=== PATIENT | male | born 1985 | race Hispanic/Latino ===

== ENCOUNTER 2018-12-02 09:24 | Emergency (ER) | payer SELFPAY ==
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
[2018-12-02 11:18] LABS: Absolute Lymphocytes (CBC) 1.5 K/uL (0.7-4.9); Absolute Neutrophil 17.6 K/uL (1.8-8.0); Basophils % 0.1 % (0-1.3); Eosinophils % 0.1 % (0-4.4); Lymphocytes % 7.3 % (15.3-44.8); MPV 10.9 fL (7.6-11.3); Monocytes % 9.5 % (3.3-12.3); RBC Red Blood Cell Count 5.44 M/uL (4.33-5.43)
[2018-12-02 11:29] LABS: Potassium 3.4 mmol/L (3.5-5.1)
[2018-12-02] MEDS ORDERED: CLINDAMYCIN 900MG/D5W 900 MG/50 ML IVPB IV ONE (11:44)
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
[2018-12-02 12:33] LABS: Blood Morphology Comment NOT SEEN (NOT SEEN); Platelet Estimate ADEQ; Toxic Granulation 1+
[2018-12-02 12:39] VITALS: TEMP 98.6
[2018-12-02 12:41] VITALS: O2SAT 100
[2018-12-02 12:42] VITALS: BP 127/82
== END 2018-12-02 12:32 | disposition home or self-care (01) ==
LOC: ER 09:24
DX: S00.01XA Abrasion of scalp, initial encounter (principal); L03.115 Cellulitis of right lower limb; V47.5XXA Car driver injured in collision with fixed or stationary object in traffic accident, initial encounter; Z91.018 Allergy to other foods
CPT/HCPCS: 36415; 70450; 72125; 80048; 85025; 86850; 86900; 86901; 96365; 99284

== ENCOUNTER 2018-12-25 12:24 | Emergency (ER) | payer SELFPAY ==
--- NOTE | 2018-12-25 13:12 | RAD REPORT ---
EXAM DESCRIPTION: US - Extremity Venous Uni Ltd - 12/25/2018 1:01 pm CLINICAL HISTORY: SWELLING Leg swelling and edema. COMPARISON: EXT VENOUS UNI LTD dated 09/19/2015 FINDINGS: Right lower extremity venous system was interrogated with Doppler technique. Normal flow, compressibility and augmentation was noted. There is no DVT present. IMPRESSION: No evidence of right lower extremity deep venous thrombosis.
--- NOTE | 2018-12-25 13:23 | EDPHYS ---
Physician Documentation [facility] Name: Ej Spaulding Age: 33 yrs Sex: Male : 1985 Arrival Date: 12/25/2018 Time: 12:26 Bed 20 Private MD: None, None ED Physician Nicolas Duenas HPI: 12/25 12:44 This 33 yrs old Male presents to ER via Ambulatory with complaints of Leg jr8 Swelling. 12:44 Patient reports RLE swelling for over 2 weeks; unresolved after treatment for jr8 cellulitis. Onset: The symptoms/episode began/occurred gradually, 2 week(s) ago. Severity of symptoms: Pain is currently a 0 / 10. The patient has not experienced similar symptoms in the past. The patient has been recently seen at the [facility] Emergency Department, a couple of weeks ago, for similar complaints was given a prescription for antibiotics. Patient states he was seen in this ER 2-3 weeks ago and at that time has RLE swelling and redness. He was told he had cellulitis and discharged home with antibiotics. Patient has finished the antibiotic treatment and states that although the redness has resolved he still has significant swelling to his RLE below the knee. Reports the swelling increases throughout the day when he is on his feet for work. Denies fever, SOB, chest pain, calf pain, previous hx of clots, or prolonged travel. Historical: - Allergies: 12:34 Cinnamon; aa5 - Home Meds: 12:34 None [Active]; aa5 - PMHx: 12:34 None; aa5 - PSHx: 12:34 None; aa5 - Immunization history:: Adult Immunizations unknown. - Social history:: Smoking status: Patient/guardian denies using tobacco. - Ebola Screening: : No symptoms or risks identified at this time. ROS: 12:44 Constitutional: Negative for fever, chills, and weight loss, Cardiovascular: Negative jr8 for chest pain, palpitations, and edema, Respiratory: Negative for shortness of breath, cough, wheezing, and pleuritic chest pain, Abdomen/GI: Negative for abdominal pain, nausea, vomiting, diarrhea, and constipation, Skin: Negative for injury, rash, and discoloration, Neuro: Negative for headache, weakness, numbness, tingling, and seizure. 12:44 MS/extremity: Positive for swelling, Negative for injury or acute deformity, erythema, pain, rash, tenderness, tingling, warmth. Exam: 12:47 Constitutional: This is a well developed, well nourished patient who is awake, alert, jr8 and in no acute distress. Cardiovascular: Regular rate and rhythm with a normal S1 and S2. No gallops, murmurs, or rubs. Normal PMI, no JVD. No pulse deficits. Respiratory: Lungs have equal breath sounds bilaterally, clear to auscultation and percussion. No rales, rhonchi or wheezes noted. No increased work of breathing, no retractions or nasal flaring. Abdomen/GI: Soft, non-tender, with normal bowel sounds. No distension or tympany. No guarding or rebound. No evidence of tenderness throughout. Skin: Warm, dry with normal turgor. Normal color with no rashes, no lesions, and no evidence of cellulitis. Neuro: Awake and alert, GCS 15, oriented to person, place, time, and situation. Cranial nerves II-XII grossly intact. Motor strength 5/5 in all extremities. Sensory grossly intact. Cerebellar exam normal. Normal gait. 12:47 Musculoskeletal/extremity: Extremities: grossly normal except: noted in the right mota, anterior aspect of right ankle and dorsum of right foot: swelling, ROM: no acute changes, intact in all extremities, Circulation is intact in all extremities. Pulses: noted to be 2+ in the right posterior tibial artery, right dorsalis pedis artery, left posterior tibial artery and left dorsalis pedis artery, Edema, 1+ to the right midcalf, right ankle, right foot and right toes is noted, Sensation intact. DVT Exam: no pain, no tenderness, negative Homans' sign noted on exam, no appreciated bluish discoloration, no erythema, no increased warmth, swelling, that is moderate, of the right leg, Calves: are non-tender, are not equal in size: right is larger than left. Vital Signs: 12:34 BP 138 / 90; Pulse 70; Resp 18 S; Temp 97.6(TE); Pulse Ox 96% on R/A; Weight 129.27 kg aa5 (R); Height 5 ft. 5 in. (165.10 cm) (R); Pain 0/10; 12:34 Body Mass Index 47.43 (129.27 kg, 165.10 cm) aa5 MDM: 12:32 Patient medically screened. jr8 13:19 Differential Diagnosis Edema. Data reviewed: vital signs, nurses notes, ultrasound. jr8 Counseling: I had a detailed discussion with the patient and/or guardian regarding: the historical points, exam findings, and any diagnostic results supporting the discharge/admit diagnosis, radiology results, the need for outpatient follow up, a family practitioner, to return to the emergency department if symptoms worsen or persist or if there are any questions or concerns that arise at home. ED course: Spoke with patient about ultrasound and assessment findings. Patient is comfortable with no pain, no redness, no warmth, no signs of infection, strong pedal pulses and normal skin temperature. No concern for infectious process or venous/arterial blockage. Explained findings and home care to patient. Patient verbalizes understanding. 12/25 12:42 Order name: Extremity Venous Uni Ltd ; Complete Time: 13:14 jr8 Administered Medications: No medications were administered Disposition: 12/25/18 13:22 Discharged to Home. Impression: Edema, unspecified - right lower extremitity . - Condition is Stable. - Discharge Instructions: Edema, [id number], Peripheral Edema. - Medication Reconciliation Form, Thank You Letter, Antibiotic Education, Prescription Opioid Use form. - Follow up: Private Physician; When: 2 - 3 days; Reason: If symptoms return, Worsening of condition, Recheck today's complaints, Re-evaluation by your physician. - Problem is new. - Symptoms are unchanged. Addendum: 12/28/2018 00:10 Co-signature as Attending Physician, Nicolas Duenas MD. g s Signatures: Dispatcher [employer] EDMS Estefani Sun RN RN aa5 Narinder Escamilla PA PA jr8 Gerson Weathers RN RN jl7 Nicolas Duenas MD MD Corrections: (The following items were deleted from the chart) 12/25 13:27 13:22 12/25/2018 13:22 Discharged to Home. Impression: Edema, unspecified - right lower jl7 extremitity . Condition is Stable. Forms are Medication Reconciliation Form, Thank You Letter, Antibiotic Education, Prescription Opioid Use. Follow up: Private Physician; When: 2 - 3 days; Reason: If symptoms return, Worsening of condition, Recheck today's complaints, Re-evaluation by your physician. Problem is new. Symptoms are unchanged. jr8
--- NOTE | 2018-12-25 13:23 | ER ---
Nurse's Notes [facility] Name: Ej Spaulding Age: 33 yrs Sex: Male : 1985 Arrival Date: 12/25/2018 Time: 12:26 Bed 20 Private MD: None, None Diagnosis: Edema, unspecified-right lower extremitity Presentation: 12/25 12:33 Presenting complaint: Patient states: "I had cellulitis about 2 week ago and I finished aa5 my antibiotics, the redness went away but my leg is still swollen". Pt c/o right leg swelling, denies pain. Transition of care: patient was not received from another setting of care. Onset of symptoms was December 2018. Risk Assessment: Do you want to hurt yourself or someone else? Patient reports no desire to harm self or others. Initial Sepsis Screen: Does the patient meet any 2 criteria? No. Patient's initial sepsis screen is negative. Does the patient have a suspected source of infection? No. Patient's initial sepsis screen is negative. Care prior to arrival: None. 12:33 Method Of Arrival: Ambulatory aa5 12:33 Acuity: MIKE 4 aa5 Historical: - Allergies: 12:34 Cinnamon; aa5 - Home Meds: 12:34 None [Active]; aa5 - PMHx: 12:34 None; aa5 - PSHx: 12:34 None; aa5 - Immunization history:: Adult Immunizations unknown. - Social history:: Smoking status: Patient/guardian denies using tobacco. - Ebola Screening: : No symptoms or risks identified at this time. Screenin:50 Abuse screen: Denies threats or abuse. Denies injuries from another. Nutritional jl7 screening: No deficits noted. Tuberculosis screening: No symptoms or risk factors identified. Fall Risk None identified. Assessment: 12:50 General: Appears in no apparent distress. uncomfortable, Behavior is calm, cooperative, jl7 appropriate for age. Pain: Denies pain. Neuro: Level of Consciousness is awake, alert, obeys commands, Oriented to person, place, time, situation. Cardiovascular: Patient's skin is warm and dry. Respiratory: Airway is patent Respiratory effort is even, unlabored, Respiratory pattern is regular, symmetrical. Derm: Skin is pink, warm \\T\\ dry. Vital Signs: 12:34 BP 138 / 90; Pulse 70; Resp 18 S; Temp 97.6(TE); Pulse Ox 96% on R/A; Weight 129.27 kg aa5 (R); Height 5 ft. 5 in. (165.10 cm) (R); Pain 0/10; 12:34 Body Mass Index 47.43 (129.27 kg, 165.10 cm) aa5 ED Course: 12:26 Patient arrived in ED. mr 12:27 None, None is Private Physician. mr 12:31 Anil Murray NP is PHCP. pm1 12:31 Nicolas Duenas MD is Attending Physician. pm1 12:31 Narinder Escamilla PA is PHCP. jr8 12:31 Arm band placed on Patient placed in an exam room, on a stretcher. aa5 12:34 Triage completed. aa5 12:50 Patient has correct armband on for positive identification. Bed in low position. Call jl7 light in reach. Side rails up X 1. 13:02 Extremity Venous Uni Ltd US In Process Unspecified. EDMS 13:21 Gerson Weathers, RN is Primary Nurse. jl7 13:26 No provider procedures requiring assistance completed. Patient did not have IV access jl7 during this emergency room visit. Administered Medications: No medications were administered Outcome: 13:22 Discharge ordered by . jr8 13:26 Discharged to home ambulatory. jl7 13:26 Condition: stable 13:26 Discharge instructions given to patient, Instructed on discharge instructions, follow up and referral plans. Demonstrated understanding of instructions, follow-up care. 13:27 Patient left the ED. jl7 Signatures: Dispatcher [employer] MARIEAR Joann Noonan DinoEstefani, RN RN aa5 Narinder Escamilla PA PA jr8 Anil Murray NP [employer] OPERATOR pm1 Gerson Weathers RN RN jl7
[2018-12-25 13:32] VITALS: BP 138/90; TEMP 97.6; O2SAT 96
== END 2018-12-25 13:27 | disposition home or self-care (01) ==
LOC: ER 12:24
DX: R60.0 Localized edema (principal); Z91.018 Allergy to other foods
CPT/HCPCS: 93971; 99283

== ENCOUNTER 2019-01-08 10:37 | Emergency (ER) | payer SELFPAY ==
[2019-01-08] MEDS ORDERED: IBUPROFEN 400 MG TAB ONE (11:33)
[2019-01-08] MEDS ORDERED: IBUPROFEN 200 MG TAB PO ONE ×2 (11:34→11:39)
--- NOTE | 2019-01-08 11:55 | RAD REPORT ---
EXAM DESCRIPTION: US - Extremity Venous Uni Ltd - 01/08/2019 11:44 am CLINICAL HISTORY: Pain;Swelling Leg swelling and edema. COMPARISON: Extremity Venous Uni Ltd dated 12/25/2018 FINDINGS: Right lower extremity venous system was interrogated with Doppler technique. Normal flow, compressibility and augmentation was noted. There is no DVT present. IMPRESSION: No evidence of right lower extremity deep venous thrombosis.
--- NOTE | 2019-01-08 12:30 | EDPHYS ---
Physician Documentation [facility] Name: Ej Spaulding Age: 33 yrs Sex: Male : 1985 Arrival Date: 01/08/2019 Time: 10:37 Bed 27 Private MD: ED Physician Hung Eldridge HPI: 01/08 11:20 This 33 yrs old Male presents to ER via Ambulatory with complaints of Feet cp Swelling. 11:20 The patient presents with pain, that is acute, swelling, tenderness. The complaints cp affect the right foot. Onset: The symptoms/episode began/occurred yesterday. Associated signs and symptoms: Pertinent positives: warmth, Pertinent negatives fever, injury. Treatment prior to arrival includes: no previous treatment. The patient has experienced a previous episode, last month, but today's symptoms are not as bad as this previous episode, diagnosed with cellulitis in right lower extremity. 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 Historical: - Allergies: 11:09 Cinnamon; iw - Home Meds: 11:09 None [Active]; iw - PMHx: 11:09 None; iw - PSHx: 11:09 None; iw - Immunization history:: Adult Immunizations up to date. - Social history:: Smoking status: Patient uses tobacco products. - Ebola Screening: : Patient negative for fever greater than or equal to 101.5 degrees Fahrenheit, and additional compatible Ebola Virus Disease symptoms Patient denies exposure to infectious person Patient denies travel to an Ebola-affected area in the 21 days before illness onset No symptoms or risks identified at this time. ROS: 11:20 Constitutional: Negative for body aches, chills, fever, poor PO intake. cp 11:20 Eyes: Negative for injury, pain, redness, and discharge. cp 11:20 ENT: Negative for drainage from ear(s), ear pain, sore throat, difficulty swallowing, difficulty handling secretions. 11:20 Cardiovascular: Negative for chest pain, palpitations. 11:20 Respiratory: Negative for cough, shortness of breath, wheezing. 11:20 Abdomen/GI: Negative for abdominal pain, nausea, vomiting, and diarrhea. 11:20 Back: Negative for pain at rest, pain with movement. 11:20 MS/extremity: Positive for erythema, pain, swelling, tenderness, warmth, of the right foot, Negative for injury or acute deformity, paresthesias. 11:20 All other systems are negative. Exam: 11:27 Constitutional: The patient appears in no acute distress, alert, awake, cp non-diaphoretic, non-toxic, well developed, well nourished, obese. 11:27 Head/Face: Normocephalic, atraumatic. cp 11:27 Eyes: Periorbital structures: appear normal, Conjunctiva: normal, no exudate, no injection, Sclera: no appreciated abnormality, Lids and lashes: appear normal, bilaterally. 11:27 ENT: External ear(s): are unremarkable, Nose: is normal, Mouth: Lips: moist, Oral mucosa: pink and intact, moist, Posterior pharynx: is normal, airway is patent, no erythema, no exudate. 11:27 Chest/axilla: Inspection: normal. 11:27 Cardiovascular: Rate: normal, Rhythm: regular, Heart sounds: murmur, not appreciated, JVD: is not appreciated. 11:27 Respiratory: the patient does not display signs of respiratory distress, Respirations: normal, no use of accessory muscles, no retractions, no splinting, no tachypnea, labored breathing, is not present, Breath sounds: are clear throughout, no decreased breath sounds, no stridor, no wheezing. 11:27 Musculoskeletal/extremity: Extremities: grossly normal except: noted in the right foot: swelling, tenderness, erythema noted to dorsum of right foot, Perfusion: the extremity is normally perfused throughout, Sensation intact. 11:27 Skin: intact of right lower extremity. Vital Signs: 11:10 BP 132 / 93; Pulse 82; Resp 16; Temp 98.3(O); Pulse Ox 98% on R/A; Weight 127.01 kg; iw Height 5 ft. 5 in. (165.10 cm); Pain 8/10; 12:17 BP 141 / 90; Pulse 80; Resp 16; Pulse Ox 97% on R/A; ao 11:10 Body Mass Index 46.59 (127.01 kg, 165.10 cm) iw MDM: 11:05 Patient medically screened. cp 11:25 Differential diagnosis: DVT, cellulitis, abscess, diabetes. cp 12:30 Data reviewed: vital signs, nurses notes, radiologic studies, ultrasound. 12:30 Counseling: I had a detailed discussion with the patient and/or guardian regarding: the cp historical points, exam findings, and any diagnostic results supporting the discharge/admit diagnosis, radiology results, the need for outpatient follow up, a family practitioner, to return to the emergency department if symptoms worsen or persist or if there are any questions or concerns that arise at home. Response to treatment: the patient's symptoms have mildly improved after treatment, VSS. US negative for DVT. Will treat patient for cellulitis of right lower extremity and discharge to home for continued monitoring. 01/08 12:28 Order name: Glucose, Ancillary Testing [facility] 01/08 11:16 Order name: US Extremity Venous Unilateral Ltd; Complete Time: 12:02 01/08 12:02 Interpretation: Report reviewed. 01/08 11:16 Order name: Accucheck Blood Glucose; Complete Time: 11:24 01/08 11:16 Order name: Misc. Order: outline area of erythema; Complete Time: 12:16 Administered Medications: 11:27 Drug: Ibuprofen 800 mg Route: PO; 11:57 Follow up: Response: Pain is decreased Disposition: 01/09 07:33 Co-signature as Attending Physician, Hung Eldridge MD. rn Disposition: 01/08/19 12:30 Discharged to Home. Impression: Cellulitis of right lower limb - foot. - Condition is Stable. - Discharge Instructions: Cellulitis, Adult. - Prescriptions for Ibuprofen 800 mg Oral Tablet - take 1 tablet by ORAL route every 8 hours As needed take with food; 30 tablet. Doxycycline Monohydrate 100 mg Oral Tablet - take 1 tablet by ORAL route every 12 hours for 10 days; 20 tablet. - Medication Reconciliation Form, Thank You Letter, Antibiotic Education, Prescription Opioid Use, Work release form form. - Follow up: Private Physician; When: 48 Hours; Reason: Worsening of condition. - Problem is new. - Symptoms have improved. Signatures: Dispatcher [employer] [facility] Sofia Mills RN RN aj Williams, Irene, RN RN iw Nieto, Roman, MD MD rn Page, Corey, PA PA Otf Persaud RN RN ao Corrections: (The following items were deleted from the chart) 01/08 12:39 12:30 01/08/2019 12:30 Discharged to Home. Impression: Cellulitis of right lower limb - ao foot. Condition is Stable. Forms are Medication Reconciliation Form, Thank You Letter, Antibiotic Education, Prescription Opioid Use. Follow up: Private Physician; When: 48 Hours; Reason: Worsening of condition. Problem is new. Symptoms have improved. cp
--- NOTE | 2019-01-08 12:30 | ER ---
Nurse's Notes [facility] Name: Ej Spaulding Age: 33 yrs Sex: Male : 1985 Arrival Date: 01/08/2019 Time: 10:37 Bed 27 Private MD: Diagnosis: Cellulitis of right lower limb-foot Presentation: 01/08 11:08 Presenting complaint: Patient states: pain, swelling, redness to top of right iw foot/ankle X 2 days. Transition of care: patient was not received from another setting of care. Onset of symptoms was January 06, 2019. Risk Assessment: Do you want to hurt yourself or someone else? Patient reports no desire to harm self or others. Initial Sepsis Screen: Does the patient meet any 2 criteria? No. Patient's initial sepsis screen is negative. Does the patient have a suspected source of infection? No. Patient's initial sepsis screen is negative. Care prior to arrival: None. 11:08 Method Of Arrival: Ambulatory iw 11:08 Acuity: MIKE 3 iw Historical: - Allergies: 11:09 Cinnamon; iw - Home Meds: 11:09 None [Active]; iw - PMHx: 11:09 None; iw - PSHx: 11:09 None; iw - Immunization history:: Adult Immunizations up to date. - Social history:: Smoking status: Patient uses tobacco products. - Ebola Screening: : Patient negative for fever greater than or equal to 101.5 degrees Fahrenheit, and additional compatible Ebola Virus Disease symptoms Patient denies exposure to infectious person Patient denies travel to an Ebola-affected area in the 21 days before illness onset No symptoms or risks identified at this time. Screenin:10 Abuse screen: Denies threats or abuse. Denies injuries from another. Nutritional ao screening: No deficits noted. Tuberculosis screening: No symptoms or risk factors identified. Fall Risk None identified. Assessment: 12:09 General: Appears in no apparent distress. comfortable, Behavior is calm, cooperative, ao appropriate for age. Pain: Denies pain. Neuro: Level of Consciousness is awake, alert, obeys commands, Oriented to person, place, time, situation, Appropriate for age Moves all extremities. Full function Speech is normal, Facial symmetry appears normal, Pupils are PERRLA. Cardiovascular: Capillary refill < 3 seconds Patient's skin is warm and dry. Respiratory: Airway is patent Respiratory effort is even, unlabored, Respiratory pattern is regular, symmetrical. GI: No signs and/or symptoms were reported involving the gastrointestinal system. : No signs and/or symptoms were reported regarding the genitourinary system. EENT: No signs and/or symptoms were reported regarding the EENT system. Derm: Skin temperature is warm. Musculoskeletal: Swelling present in right leg. 12:38 Reassessment: Dc instructions given to patient. Patient agree with the POC and to ao follow up with PCP. Vital Signs: 11:10 BP 132 / 93; Pulse 82; Resp 16; Temp 98.3(O); Pulse Ox 98% on R/A; Weight 127.01 kg; iw Height 5 ft. 5 in. (165.10 cm); Pain 8/10; 12:17 BP 141 / 90; Pulse 80; Resp 16; Pulse Ox 97% on R/A; ao 11:10 Body Mass Index 46.59 (127.01 kg, 165.10 cm) iw ED Course: 10:37 Patient arrived in ED. as 11:02 Sofia Mills, RN is Primary Nurse. aj 11:05 Jesús Bach PA is PHCP. cp 11:05 Hung Eldridge MD is Attending Physician. cp 11:09 Triage completed. iw 11:10 Arm band placed on. iw 11:38 US Extremity Venous Unilateral Ltd In Process Unspecified. EDMS 12:10 Patient has correct armband on for positive identification. Pulse ox on. ao 12:38 No provider procedures requiring assistance completed. Patient did not have IV access ao during this emergency room visit. Administered Medications: 11:27 Drug: Ibuprofen 800 mg Route: PO; aj 11:57 Follow up: Response: Pain is decreased aj Outcome: 12:30 Discharge ordered by . cp 12:38 Discharged to home ambulatory. ao 12:38 Condition: stable 12:38 Discharge instructions given to patient, Instructed on discharge instructions, follow up and referral plans. Demonstrated understanding of instructions, follow-up care, medications, Prescriptions given X 2. 12:39 Patient left the ED. ao Signatures: Dispatcher [employer] [facility] Sofia Mills RN RN aj Martinez, Amelia as Williams, Irene, RN RN iw Jesús Bach PA PA Otf Miranda RN RN ao
[2019-01-08 13:13] VITALS: TEMP 98.3
[2019-01-08 13:14] VITALS: BP 141/90; O2SAT 97
== END 2019-01-08 12:39 | disposition home or self-care (01) ==
LOC: ER 10:37
DX: L03.115 Cellulitis of right lower limb (principal); Z72.0 Tobacco use
CPT/HCPCS: 82962; 93971; 99284

== ENCOUNTER 2019-12-29 15:09 | Emergency (ER) | payer SELFPAY ==
[2019-12-29] MEDS ORDERED: ONDANSETRON 4 MG/2 ML VIAL ONE (15:37)
[2019-12-29] MEDS ORDERED: NA CHLORIDE 0.9% 1,000 ML ONE (15:37)
[2019-12-29 15:53] LABS: Absolute Lymphocytes (CBC) 2.8 K/uL (0.7-4.9); Basophils % 0.7 % (0-1.3); Hematocrit 48.6 % (39.6-49.0); Lymphocytes % 26.8 % (15.3-44.8); MPV 10.3 fL (7.6-11.3); RBC Red Blood Cell Count 5.54 M/uL (4.33-5.43)
[2019-12-29 16:12] LABS: ALT/SGPT 81 U/L (12-78); AST/SGOT 54 U/L (15-37); Albumin 3.7 g/dL (3.4-5.0); Alkaline Phosphatase 52 U/L (45-117); BUN Blood Urea Nitrogen 11 mg/dL (7-18); Bicarbonate 27 mmol/L (21-32); Bilirubin Direct 0.1 mg/dL (0-0.2); Glucose Level 91 mg/dL (74-106); Lipase 148 U/L (73-393); Protein, Total 7.7 g/dL (6.4-8.2); Sodium Level 141 mmol/L (136-145)
[2019-12-29 16:19] LABS: Bilirubin Total 0.5 mg/dL (0.2-1.0)
--- NOTE | 2019-12-29 16:31 | EDPHYS ---
Physician Documentation [facility] Name: Ej Spaulding Age: 34 yrs Sex: Male : 1985 Arrival Date: 12/29/2019 Time: 15:10 Bed 24 Private MD: ED Physician Gui Saldana HPI: 12/28 16:17 This 34 yrs old Male presents to ER via Ambulatory with complaints of kb Vomiting/Diarrhea. 16:17 The patient presents to the emergency department with nausea, vomiting, diarrhea, kb abdominal pain. Onset: The symptoms/episode began/occurred yesterday. Possible causes: bad food exposure. The symptoms are aggravated by nothing. The symptoms are alleviated by nothing. Associated signs and symptoms: Pertinent positives: diarrhea, nausea, vomiting, Pertinent negatives: abdominal pain, anorexia, belching, constipation, dysuria, fever, flatulence, GI bleeding, hematuria. Severity of symptoms: At their worst the symptoms were moderate in the emergency department the symptoms are unchanged. The patient has not experienced similar symptoms in the past. The patient has not recently seen a physician. Pt reports he ate a burrito on the way to work yesterday morning, then started vomiting about an hour later. Reports he now had diarrhea as well. No sick contacts.. Historical: - Allergies: 15:25 Cinnamon; ll1 - PMHx: 15:25 None; ll1 - PSHx: 15:25 None; ll1 - Immunization history:: Flu vaccine is not up to date. - Social history:: Smoking status: Patient reports the use of cigarette tobacco products, denies chronic smoking, but will smoke occasionally, Patient uses alcohol, only on a social basis. Patient/guardian denies using street drugs. ROS: 16:16 Constitutional: Negative for fever, chills, and weight loss, ENT: Negative for injury, kb pain, and discharge, Neck: Negative for injury, pain, and swelling, Cardiovascular: Negative for chest pain, palpitations, and edema, Respiratory: Negative for shortness of breath, cough, wheezing, and pleuritic chest pain, Back: Negative for injury and pain, MS/Extremity: Negative for injury and deformity, Skin: Negative for injury, rash, and discoloration, Neuro: Negative for headache, weakness, numbness, tingling, and seizure. 16:16 Abdomen/GI: Positive for nausea, vomiting, and diarrhea, abdominal cramps, Negative for constipation. Exam: 16:16 Constitutional: This is a well developed, well nourished patient who is awake, alert, kb and in no acute distress. Head/Face: Normocephalic, atraumatic. Neck: Trachea midline, no thyromegaly or masses palpated, and no cervical lymphadenopathy. Supple, full range of motion without nuchal rigidity, or vertebral point tenderness. No Meningismus. Chest/axilla: Normal chest wall appearance and motion. Nontender with no deformity. No lesions are appreciated. Cardiovascular: Regular rate and rhythm with a normal S1 and S2. No gallops, murmurs, or rubs. Normal PMI, no JVD. No pulse deficits. Respiratory: Lungs have equal breath sounds bilaterally, clear to auscultation and percussion. No rales, rhonchi or wheezes noted. No increased work of breathing, no retractions or nasal flaring. Abdomen/GI: Soft, non-tender, with normal bowel sounds. No distension or tympany. No guarding or rebound. No evidence of tenderness throughout. Back: No spinal tenderness. No costovertebral tenderness. Full range of motion. Skin: Warm, dry with normal turgor. Normal color with no rashes, no lesions, and no evidence of cellulitis. MS/ Extremity: Pulses equal, no cyanosis. Neurovascular intact. Full, normal range of motion. Neuro: Awake and alert, GCS 15, oriented to person, place, time, and situation. Cranial nerves II-XII grossly intact. Motor strength 5/5 in all extremities. Sensory grossly intact. Cerebellar exam normal. Normal gait. Vital Signs: 15:23 BP 144 / 98; Pulse 74; Resp 18; Temp 98.9; Pulse Ox 97% ; Weight 131.54 kg; Height 5 ll1 ft. 5 in. (165.10 cm); Pain 3/10; 15:23 Body Mass Index 48.26 (131.54 kg, 165.10 cm) ll1 MDM: 15:26 Patient medically screened. kb 16:17 Data reviewed: vital signs, nurses notes. Data interpreted: Pulse oximetry: on room air kb is 97 %. Interpretation: normal. Counseling: I had a detailed discussion with the patient and/or guardian regarding: the historical points, exam findings, and any diagnostic results supporting the discharge/admit diagnosis, lab results, the need for outpatient follow up, a family practitioner, to return to the emergency department if symptoms worsen or persist or if there are any questions or concerns that arise at home. 12/28 15:26 Order name: Basic Metabolic Panel; Complete Time: 16:20 kb 12/28 15:26 Order name: CBC with Diff; Complete Time: 16:05 kb 12/28 15:26 Order name: Hepatic Function; Complete Time: 16:20 kb 12/28 15:26 Order name: Lipase; Complete Time: 16:20 kb 12/28 15:26 Order name: IV Saline Lock; Complete Time: 15:43 kb 12/28 15:26 Order name: Labs collected and sent; Complete Time: 15:43 kb Administered Medications: 15:42 Drug: Zofran (Ondansetron) 4 mg Route: IVP; Site: right antecubital; hb 16:15 Follow up: Response: No adverse reaction hb 15:43 Drug: NS 0.9% 1000 ml Route: IV; Rate: 1000 ml; Site: right antecubital; hb 16:45 Follow up: Response: No adverse reaction; IV Status: Completed infusion; IV Intake: hb 1000ml Disposition: 12/29 08:49 Co-signature as Attending Physician, Gui Saldana MD I agree with the assessment and kdr plan of care. Disposition: 12/29/19 16:21 Discharged to Home. Impression: Vomiting, Diarrhea, unspecified. - Condition is Stable. - Discharge Instructions: Food Choices to Help Relieve Diarrhea, Adult, Food Poisoning, [id number]. - Prescriptions for Bentyl 20 mg Oral Tablet - take 1 tablet by ORAL route every 6 hours As needed; 20 tablet. Zofran 4 mg Oral Tablet - take 1 tablet by ORAL route every 6 hours As needed; 20 tablet. - Medication Reconciliation Form, Thank You Letter, Antibiotic Education, Prescription Opioid Use, Work release form form. - Follow up: Emergency Department; When: As needed; Reason: Worsening of condition. Follow up: Private Physician; When: 2 - 3 days; Reason: Recheck today's complaints, Continuance of care, Re-evaluation by your physician. Signatures: Dispatcher [employer] Ro Luther, Fortunato Lynnin, MD MD [facility] Fior Talavera, RN RN Morenita Amador RN RN ll1 Corrections: (The following items were deleted from the chart) 12/28 16:54 16:21 12/29/2019 16:21 Discharged to Home. Impression: Vomiting; Diarrhea, unspecified. hb Condition is Stable. Forms are Medication Reconciliation Form, Thank You Letter, Antibiotic Education, Prescription Opioid Use. Follow up: Emergency Department; When: As needed; Reason: Worsening of condition. Follow up: Private Physician; When: 2 - 3 days; Reason: Recheck today's complaints, Continuance of care, Re-evaluation by your physician. kb
--- NOTE | 2019-12-29 16:31 | ER ---
Nurse's Notes [facility] Name: Ej Spaulding Age: 34 yrs Sex: Male : 1985 Arrival Date: 12/29/2019 Time: 15:10 Bed 24 Private MD: Diagnosis: Vomiting;Diarrhea, unspecified Presentation: 12/28 15:23 Chief complaint: Patient states: N/V/D for 2 days. Thinks he ate bad food. Coronavirus ll1 screen: Proceed with normal triage. Patient denies a cough. Patient denies shortness of breath or difficulty breathing. Patient denies measured and/or subjective temperature greater than 100.4F prior to today's visit. Patient denies travel on a cruise ship or to a country the [facility] currently lists as an affected area. Patient denies contact with known and/or suspected case of COVID-19. Ebola Screen: Patient denies travel to an Ebola-affected area in the 21 days before illness onset. Initial Sepsis Screen: Does the patient meet any 2 criteria? No. Patient's initial sepsis screen is negative. Does the patient have a suspected source of infection? No. Patient's initial sepsis screen is negative. Risk Assessment: Do you want to hurt yourself or someone else? Patient reports no desire to harm self or others. Onset of symptoms was December 28, 2019. 15:23 Method Of Arrival: Ambulatory 1 15:23 Acuity: MIKE 3 ll1 Historical: - Allergies: 15:25 Cinnamon; ll1 - PMHx: 15:25 None; ll1 - PSHx: 15:25 None; ll1 - Immunization history:: Flu vaccine is not up to date. - Social history:: Smoking status: Patient reports the use of cigarette tobacco products, denies chronic smoking, but will smoke occasionally, Patient uses alcohol, only on a social basis. Patient/guardian denies using street drugs. Vital Signs: 15:23 BP 144 / 98; Pulse 74; Resp 18; Temp 98.9; Pulse Ox 97% ; Weight 131.54 kg; Height 5 ll1 ft. 5 in. (165.10 cm); Pain 3/10; 15:23 Body Mass Index 48.26 (131.54 kg, 165.10 cm) ll1 ED Course: 15:10 Patient arrived in ED. ag5 15:12 Ro Cole FNP-C is [facility]. kb 15:12 Gui Saldana MD is Attending Physician. kb 15:24 Triage completed. ll1 15:25 Arm band placed on Patient placed in an exam room, on a stretcher. ll1 15:29 Fior Talavera, RN is Primary Nurse. hb 15:40 Inserted saline lock: 20 gauge in right antecubital area, using aseptic technique. hb Blood collected. Administered Medications: 15:42 Drug: Zofran (Ondansetron) 4 mg Route: IVP; Site: right antecubital; hb 16:15 Follow up: Response: No adverse reaction hb 15:43 Drug: NS 0.9% 1000 ml Route: IV; Rate: 1000 ml; Site: right antecubital; hb 16:45 Follow up: Response: No adverse reaction; IV Status: Completed infusion; IV Intake: hb 1000ml Intake: 16:45 IV: 1000ml; Total: 1000ml. hb Outcome: 16:21 Discharge ordered by . kb 16:54 Patient left the ED. hb Signatures: Ro Cole FNP-C [employer] Fior Talavera, RN RN Lance Michele ag5 Morenita Amador RN RN ll1
[2019-12-29 17:11] VITALS: BP 144/98; TEMP 98.9; O2SAT 97
== END 2019-12-29 16:54 | disposition home or self-care (01) ==
LOC: ER 15:09
DX: R19.7 Diarrhea, unspecified (principal); F17.210 Nicotine dependence, cigarettes, uncomplicated; Z91.018 Allergy to other foods
CPT/HCPCS: 36415; 80048; 80076; 83690; 85025; J2405; J7030

== ENCOUNTER 2020-02-19 11:39 | Emergency (ER) | payer SELFPAY ==
--- NOTE | 2020-02-19 12:36 | RAD REPORT ---
EXAM DESCRIPTION: USExtremity Venous Uni Ltd02/19/2020 12:12 pm CLINICAL HISTORY: Right leg pain COMPARISON: 2019 FINDINGS: Right common femoral, superficial femoral, popliteal and right posterior tibial veins are compressible and demonstrate augmentation. Doppler demonstrates good flow. IMPRESSION: No evidence of deep venous thrombosis involving the right lower extremity.
--- NOTE | 2020-02-19 12:37 | ER ---
Nurse's Notes [facility] Name: Ej Spaulding Age: 34 yrs Sex: Male : 1985 Arrival Date: 02/19/2020 Time: 11:41 Bed 24 Private MD: Diagnosis: Edema, unspecified-right lower extremity Presentation: 02/18 11:54 Chief complaint: Patient states: R leg and R foot swelling since yesterday. Denies ca1 injury to the area. Reports pain at the top foot and R calf when stretching foot. Coronavirus screen: Proceed with normal triage. Patient denies a cough. Patient denies shortness of breath or difficulty breathing. Patient denies measured and/or subjective temperature greater than 100.4F prior to today's visit. Patient denies travel on a cruise ship or to a country the [facility] currently lists as an affected area. Patient denies contact with known and/or suspected case of COVID-19. Ebola Screen: Patient negative for fever greater than or equal to 101.5 degrees Fahrenheit, and additional compatible Ebola Virus Disease symptoms Patient denies exposure to infectious person. Patient denies travel to an Ebola-affected area in the 21 days before illness onset. No symptoms or risks identified at this time. Initial Sepsis Screen: Does the patient meet any 2 criteria? No. Patient's initial sepsis screen is negative. Does the patient have a suspected source of infection? No. Patient's initial sepsis screen is negative. Risk Assessment: Do you want to hurt yourself or someone else? Patient reports no desire to harm self or others. Onset of symptoms was February 19, 2020. 11:54 Method Of Arrival: Ambulatory ca1 11:54 Acuity: MIKE 3 ca1 Triage Assessment: 12:00 General: Appears in no apparent distress. Behavior is calm, cooperative. iw Historical: - Allergies: 11:59 Cinnamon; ca1 - Home Meds: 11:59 None [Active]; ca1 - PMHx: 11:59 None; ca1 - PSHx: 11:59 None; ca1 - Immunization history:: Adult Immunizations up to date. - Social history:: Smoking status: Patient reports the use of cigarette tobacco products, denies chronic smoking, but will smoke occasionally. Screenin:55 Abuse screen: Denies threats or abuse. Denies injuries from another. Nutritional iw screening: No deficits noted. Tuberculosis screening: No symptoms or risk factors identified. Fall Risk None identified. Assessment: 12:00 General: Appears in no apparent distress. comfortable, Behavior is calm, cooperative. iw Pain: Complains of pain in right leg. Neuro: Level of Consciousness is awake, alert, obeys commands, Oriented to person, place, time, situation, Moves all extremities. Full function. Cardiovascular: Patient's skin is warm and dry. Respiratory: Respiratory effort is even, unlabored, Respiratory pattern is regular, symmetrical. GI: No signs and/or symptoms were reported involving the gastrointestinal system. Derm: Skin is intact, is healthy with good turgor. Musculoskeletal: Swelling present in right leg. Vital Signs: 11:54 BP 134 / 108; Pulse 80; Resp 16 S; Temp 98.5(TE); Pulse Ox 96% on R/A; Weight 133.36 kg ca1 (R); Height 5 ft. 5 in. (165.10 cm) (R); Pain 1/10; 11:54 Body Mass Index 48.93 (133.36 kg, 165.10 cm) ca1 ED Course: 11:41 Patient arrived in ED. ag5 11:54 Ro Cole FNP-C [facility]. kb 11:54 Allan Conley MD is Attending Physician. kb 11:58 Triage completed. ca1 11:59 Arm band placed on right wrist. ca1 12:00 Patient has correct armband on for positive identification. iw 12:13 US Extremity Venous Unilateral Ltd In Process Unspecified. EDMS 12:49 Chani Guallpa RN is Primary Nurse. iw 12:55 No provider procedures requiring assistance completed. Patient admitted, IV remains in iw place. Administered Medications: No medications were administered Outcome: 12:37 Discharge ordered by . kb 12:55 Discharged to home ambulatory. iw 12:55 Condition: good 12:55 Discharge instructions given to patient, Instructed on discharge instructions, follow up and referral plans. Demonstrated understanding of instructions, follow-up care. 12:56 Patient left the ED. iw Signatures: Dispatcher [employer] EDMS Ro Cole FNP-C FNP-Ckb Williams, Irene, RN RN iw Ella Negro RN RN ca1 Lance Wagner ag5 Corrections: (The following items were deleted from the chart) 11:59 11:54 Acuity: MIKE 4 ca1 ca1 11:59 11:54 Pulse 80bpm; Resp 16bpm; Spontaneous; Pulse Ox 96% RA; Temp 98.5F Temporal; ca1 133.36 kg Reported; Height 5 ft. 5 in. Reported; BMI: 48.9; Pain 1/10; ca1
--- NOTE | 2020-02-19 12:37 | EDPHYS ---
Physician Documentation [facility] Name: Ej Spaulding Age: 34 yrs Sex: Male : 1985 Arrival Date: 02/19/2020 Time: 11:41 Bed 24 Private MD: ED Physician Allan Conley HPI: 02/18 12:39 This 34 yrs old Male presents to ER via Ambulatory with complaints of Leg kb Swelling. 12:39 The patient presents with swelling. The complaints affect the right leg. Context: The kb problem was sustained at home, resulted from an unknown cause, the patient can fully bear weight, the patient is able to ambulate. Onset: The symptoms/episode began/occurred 3 day(s) ago. Modifying factors: The symptoms are alleviated by elevating leg, the symptoms are aggravated by nothing. Associated signs and symptoms: Pertinent positives: swelling, Pertinent negatives calf tenderness, fever, nausea, numbness, rash, vomiting, warmth, weakness. Treatment prior to arrival includes: no previous treatment. Severity of symptoms: At their worst the symptoms were moderate, in the emergency department the symptoms are unchanged. The patient has not experienced similar symptoms in the past. The patient has not recently seen a physician. Pt reports right leg swelling that started 3 days ago. States it was painful when it was swollen and painful to walk. States he elevated it and the swelling resolved. Has no pain at this time. Ambulates with steady gait. No signs on infection or trauma. Denies injury or trauma. . Historical: - Allergies: 11:59 Cinnamon; ca1 - Home Meds: 11:59 None [Active]; ca1 - PMHx: 11:59 None; ca1 - PSHx: 11:59 None; ca1 - Immunization history:: Adult Immunizations up to date. - Social history:: Smoking status: Patient reports the use of cigarette tobacco products, denies chronic smoking, but will smoke occasionally. ROS: 12:38 Constitutional: Negative for fever, chills, and weight loss, Cardiovascular: Negative kb for chest pain, palpitations, and edema, Respiratory: Negative for shortness of breath, cough, wheezing, and pleuritic chest pain, Abdomen/GI: Negative for abdominal pain, nausea, vomiting, diarrhea, and constipation, Back: Negative for injury and pain, Skin: Negative for injury, rash, and discoloration, Neuro: Negative for headache, weakness, numbness, tingling, and seizure. 12:38 MS/extremity: Positive for swelling, of the right leg. Exam: 12:38 Constitutional: This is a well developed, well nourished patient who is awake, alert, kb and in no acute distress. Head/Face: Normocephalic, atraumatic. Chest/axilla: Normal chest wall appearance and motion. Nontender with no deformity. No lesions are appreciated. Cardiovascular: Regular rate and rhythm with a normal S1 and S2. No gallops, murmurs, or rubs. Normal PMI, no JVD. No pulse deficits. Respiratory: Lungs have equal breath sounds bilaterally, clear to auscultation and percussion. No rales, rhonchi or wheezes noted. No increased work of breathing, no retractions or nasal flaring. Abdomen/GI: Soft, non-tender, with normal bowel sounds. No distension or tympany. No guarding or rebound. No evidence of tenderness throughout. Skin: Warm, dry with normal turgor. Normal color with no rashes, no lesions, and no evidence of cellulitis. MS/ Extremity: Pulses equal, no cyanosis. Neurovascular intact. Full, normal range of motion. Neuro: Awake and alert, GCS 15, oriented to person, place, time, and situation. Cranial nerves II-XII grossly intact. Motor strength 5/5 in all extremities. Sensory grossly intact. Cerebellar exam normal. Normal gait. Vital Signs: 11:54 BP 134 / 108; Pulse 80; Resp 16 S; Temp 98.5(TE); Pulse Ox 96% on R/A; Weight 133.36 kg ca1 (R); Height 5 ft. 5 in. (165.10 cm) (R); Pain 1/10; 11:54 Body Mass Index 48.93 (133.36 kg, 165.10 cm) ca1 MDM: 11:54 Patient medically screened. kb 12:36 Data reviewed: vital signs, nurses notes. Data interpreted: Pulse oximetry: on room air kb is 96 %. Interpretation: normal. Counseling: I had a detailed discussion with the patient and/or guardian regarding: the historical points, exam findings, and any diagnostic results supporting the discharge/admit diagnosis, radiology results, the need for outpatient follow up, a family practitioner, to return to the emergency department if symptoms worsen or persist or if there are any questions or concerns that arise at home. 02/18 11:55 Order name: US Extremity Venous Unilateral Ltd; Complete Time: 12:38 kb Administered Medications: No medications were administered Disposition: 18:49 Co-signature as Attending Physician, Allan Conley MD. ma2 Disposition: 02/19/20 12:37 Discharged to Home. Impression: Edema, unspecified - right lower extremity. - Condition is Stable. - Discharge Instructions: Edema, [id number]. - Medication Reconciliation Form, Thank You Letter, Antibiotic Education, Prescription Opioid Use, Work release form form. - Follow up: Private Physician; When: 2 - 3 days; Reason: Recheck today's complaints, Continuance of care, Re-evaluation by your physician. Follow up: Emergency Department; When: As needed; Reason: Worsening of condition. Signatures: Dispatcher [employer] EDRo Morocho, RENUKA LI-Chani Jones RN RN Allan Conley MD MD [facility] Ella Negro RN RN ca1 Corrections: (The following items were deleted from the chart) 12:56 12:37 02/19/2020 12:37 Discharged to Home. Impression: Edema, unspecified - right lower iw extremity. Condition is Stable. Forms are Medication Reconciliation Form, Thank You Letter, Antibiotic Education, Prescription Opioid Use. Follow up: Private Physician; When: 2 - 3 days; Reason: Recheck today's complaints, Continuance of care, Re-evaluation by your physician. Follow up: Emergency Department; When: As needed; Reason: Worsening of condition. kb
[2020-02-19 13:02] VITALS: BP 134/108; TEMP 98.5; O2SAT 96
== END 2020-02-19 12:56 | disposition home or self-care (01) ==
LOC: ER 11:39
DX: R60.0 Localized edema (principal); Z91.018 Allergy to other foods; F17.210 Nicotine dependence, cigarettes, uncomplicated
CPT/HCPCS: 93971; 99283

== ENCOUNTER 2020-04-06 10:20 | Emergency (ER) | payer SELFPAY ==
--- NOTE | 2020-04-06 10:58 | ER ---
Nurse's Notes [facility] Name: Ej Spaulding Age: 35 yrs Sex: Male : 1985 Arrival Date: 04/06/2020 Time: 10:21 Bed 17 Private MD: Diagnosis: Pain in left shoulder;Strain of muscle(s) and tendon(s) of the rotator cuff of unspecified shoulder-Left Presentation: 04/06 10:25 Chief complaint: Patient states: L shoulder pain x 2 days. Unable to lift L shoulder at ca1 this time. Tripped, fell and landed on L shoulder 2 days ago. Coronavirus screen: Patient denies a cough. Patient denies shortness of breath or difficulty breathing. Patient denies measured and/or subjective temperature greater than 100.4F prior to today's visit. Patient denies travel on a cruise ship or to a country the [facility] currently lists as an affected area. Patient denies contact with known and/or suspected case of COVID-19. Proceed with normal triage. Ebola Screen: Patient negative for fever greater than or equal to 101.5 degrees Fahrenheit, and additional compatible Ebola Virus Disease symptoms Patient denies exposure to infectious person. Patient denies travel to an Ebola-affected area in the 21 days before illness onset. No symptoms or risks identified at this time. Initial Sepsis Screen: Does the patient meet any 2 criteria? No. Patient's initial sepsis screen is negative. Does the patient have a suspected source of infection? No. Patient's initial sepsis screen is negative. Risk Assessment: Do you want to hurt yourself or someone else? Patient reports no desire to harm self or others. Onset of symptoms was April 06, 2020. 10:25 Method Of Arrival: Ambulatory ca1 10:25 Acuity: MIKE 4 ca1 Triage Assessment: 10:58 General: Appears in no apparent distress. uncomfortable, obese, Behavior is calm, bp cooperative, appropriate for age. Pain: Complains of pain in left shoulder. EENT: No deficits noted. Neuro: No deficits noted. Cardiovascular: No deficits noted. Respiratory: No deficits noted. GI: No signs and/or symptoms were reported involving the gastrointestinal system. : No signs and/or symptoms were reported regarding the genitourinary system. Derm: No deficits noted. Musculoskeletal: Circulation, motion, and sensation intact. Range of motion: limited in left shoulder. Historical: - Allergies: 10:57 Cinnamon; ca1 - Home Meds: 10:57 None [Active]; ca1 - PMHx: 10:57 None; ca1 - PSHx: 10:57 None; ca1 - Immunization history:: Adult Immunizations up to date. - Social history:: Smoking status: Patient reports the use of cigarette tobacco products, denies chronic smoking, but will smoke occasionally. Screenin:59 Abuse screen: Denies threats or abuse. Denies injuries from another. Nutritional bp screening: No deficits noted. Tuberculosis screening: No symptoms or risk factors identified. Fall Risk None identified. Assessment: 10:45 General: SEE TRIAGE NOTE. bp 11:00 Reassessment: PT D/C HOME AMBULATORY, DX WITH LEFT SHOULDER STRAIN. bp Vital Signs: 10:25 BP 139 / 109; Pulse 85; Resp 15 S; Temp 98.4(TE); Pulse Ox 98% on R/A; Weight 131.54 kg ca1 (R); Height 5 ft. 5 in. (165.10 cm) (R); 10:25 Body Mass Index 48.26 (131.54 kg, 165.10 cm) ca1 ED Course: 10:21 Patient arrived in ED. ag5 10:22 Gui Saldana MD is Attending Physician. kdr 10:45 Segundo Ridley, JASON is Primary Nurse. bp 10:56 Triage completed. ca1 10:57 Arm band placed on right wrist. ca1 10:59 Patient has correct armband on for positive identification. Bed in low position. Call bp light in reach. Side rails up X2. 11:00 No provider procedures requiring assistance completed. Patient did not have IV access bp during this emergency room visit. Administered Medications: No medications were administered Outcome: 10:57 Discharge ordered by . kdr 11:06 Patient left the ED. bp Signatures: Gui Saldana MD MD kdr Segundo Ridley RN RN bp Ella Negro RN RN ca1 Lance Wagner ag5 Corrections: (The following items were deleted from the chart) 11:00 10:59 General: SEE TRIAGE NOTE. bp bp
--- NOTE | 2020-04-06 10:58 | EDPHYS ---
Physician Documentation [facility] Name: Ej Spaulding Age: 35 yrs Sex: Male : 1985 Arrival Date: 04/06/2020 Time: 10:21 Bed 17 Private MD: ED Physician Gui Saldana HPI: 04/06 11:01 This 35 yrs old Male presents to ER via Ambulatory with complaints of Shoulder kdr Pain. 11:01 The patient or guardian complains of decreased range of motion, an injury, pain, that kdr is acute. left shoulder. Context: The problem was sustained at work, resulted from a fall, fell on right side but tried to catch himself with his left arm, The patient experiences decreased range of motion, when attempts to raise arm, The patient reports no obvious deformity. Onset: The symptoms/episode began/occurred suddenly, 2 day(s) ago. Modifying factors: the symptoms are alleviated by nothing. The symptoms are aggravated by lifting weight. Associated signs and symptoms: The patient has no apparent associated signs or symptoms. Severity of symptoms: in the emergency department the symptoms are unchanged. Treatment prior to arrival includes: no previous treatment. The patient has not experienced similar symptoms in the past. The patient has not recently seen a physician. Historical: - Allergies: 10:57 Cinnamon; ca1 - Home Meds: : None [Active]; ca1 - PMHx: :57 None; ca1 - PSHx: 10:57 None; ca1 - Immunization history:: Adult Immunizations up to date. - Social history:: Smoking status: Patient reports the use of cigarette tobacco products, denies chronic smoking, but will smoke occasionally. ROS: 11:01 Constitutional: Negative for fever, chills, and weight loss, Eyes: Negative for injury, kdr pain, redness, and discharge, ENT: Negative for injury, pain, and discharge, Neck: Negative for injury, pain, and swelling, Cardiovascular: Negative for chest pain, palpitations, and edema, Respiratory: Negative for shortness of breath, cough, wheezing, and pleuritic chest pain, Abdomen/GI: Negative for abdominal pain, nausea, vomiting, diarrhea, and constipation, Back: Negative for injury and pain, : Negative for injury, bleeding, discharge, and swelling, Skin: Negative for injury, rash, and discoloration, Neuro: Negative for headache, weakness, numbness, tingling, and seizure activity. Psych: Negative for depression, anxiety, suicide ideation, homicidal ideation, and hallucinations, Allergy/Immunology: Negative for hives, rash, and allergies, Endocrine: Negative for neck swelling, polydipsia, polyuria, polyphagia, and marked weight changes, Hematologic/Lymphatic: Negative for swollen nodes, abnormal bleeding, and unusual bruising. 11:01 MS/extremity: Positive for injury or acute deformity, decreased range of motion, pain, tenderness, of the anterior aspect of left shoulder and left bicep, Negative for abrasion, bite, contusion, deformity, ecchymosis, erythema, laceration, pain, paresthesias. Exam: 11:01 Constitutional: This is a well developed, well nourished patient who is awake, alert, kdr and in no acute distress. Head/Face: Normocephalic, atraumatic. 11:01 Musculoskeletal/extremity: Extremities: grossly normal except: noted in the anterior aspect of left shoulder and left bicep: decreased ROM, pain, Very minor discomfort - he is mostly limited in bringing his arm above 90 from his torso. Vital Signs: 10:25 BP 139 / 109; Pulse 85; Resp 15 S; Temp 98.4(TE); Pulse Ox 98% on R/A; Weight 131.54 kg ca1 (R); Height 5 ft. 5 in. (165.10 cm) (R); 10:25 Body Mass Index 48.26 (131.54 kg, 165.10 cm) ca1 MDM: 10:57 Patient medically screened. kdr 11:01 Data reviewed: vital signs, nurses notes. Counseling: I had a detailed discussion with kdr the patient and/or guardian regarding: the historical points, exam findings, and any diagnostic results supporting the discharge/admit diagnosis, the need for outpatient follow up. Administered Medications: No medications were administered Disposition: 04/06/20 10:57 Discharged to Home. Impression: Pain in left shoulder, Strain of muscle(s) and tendon(s) of the rotator cuff of unspecified shoulder - Left. - Condition is Stable. - Discharge Instructions: Musculoskeletal Pain, Shoulder Pain, [id number], Joint Pain, [id number], Heat Therapy, [id number]. - Prescriptions for Ibuprofen 800 mg Oral Tablet - take 1 tablet by ORAL route every 8 hours As needed take with food; 15 tablet. Cyclobenzaprine 10 mg Oral Tablet - take 1 tablet by ORAL route every 8 hours As needed; 15 tablet. - Medication Reconciliation Form, Thank You Letter, Work release form form. - Follow up: Private Physician; When: 2 - 3 days; Reason: If symptoms return, Further diagnostic work-up, Recheck today's complaints, Continuance of care, Re-evaluation by your physician. - Problem is new. - Symptoms are unchanged. Signatures: Gui Saldana MD MD kdr Segundo Ridley RN RN bp Acob, Ella RN RN ca1 Corrections: (The following items were deleted from the chart) 11:06 10:57 04/06/2020 10:57 Discharged to Home. Impression: Pain in left shoulder; Strain of bp muscle(s) and tendon(s) of the rotator cuff of unspecified shoulder - Left. Condition is Stable. Forms are Work release form, Medication Reconciliation Form, Thank You Letter, Antibiotic Education, Prescription Opioid Use. Follow up: Private Physician; When: 2 - 3 days; Reason: If symptoms return, Further diagnostic work-up, Recheck today's complaints, Continuance of care, Re-evaluation by your physician. Problem is new. Symptoms are unchanged. kdr
[2020-04-06 11:12] VITALS: BP 139/109; TEMP 98.4; O2SAT 98
== END 2020-04-06 11:06 | disposition home or self-care (01) ==
LOC: ER 10:20
DX: S46.012A Strain of muscle(s) and tendon(s) of the rotator cuff of left shoulder, initial encounter (principal); W19.XXXA Unspecified fall, initial encounter; Y93.9 Activity, unspecified; Y92.89 Other specified places as the place of occurrence of the external cause; Y99.8 Other external cause status; F17.210 Nicotine dependence, cigarettes, uncomplicated; Z91.018 Allergy to other foods
CPT/HCPCS: 99281

== ENCOUNTER 2020-05-10 10:25 | Emergency (ER) | payer SELFPAY ==
--- NOTE | 2020-05-10 11:32 | RAD REPORT ---
EXAM DESCRIPTION: RAD - Chest Pa And Lat (2 Views) - 05/10/2020 11:17 am CLINICAL HISTORY: cough, left sided posterior thoracic pain COMPARISON: Two view chest December 2015 TECHNIQUE: Frontal and lateral views of the chest were obtained. FINDINGS: The lungs are clear. Lateral view has motion degradation. Interstitial pattern is similar to comparison. No hilar mass or lymphadenopathy. Heart size is normal and central vasculature is wit hin normal limits. No pleural effusion or pneumothorax seen. No acute bony finding noted. No aorti c abnormality. No suspicious change from comparison. IMPRESSION: No acute cardiopulmonary process.
--- NOTE | 2020-05-10 11:39 | ER ---
Nurse's Notes [facility] Name: Ej Spaulding Age: 35 yrs Sex: Male : 1985 Arrival Date: 05/10/2020 Time: 10:28 Bed 7 Private MD: Diagnosis: Cough;Strain of muscle and tendon of back wall of thorax Presentation: 05/10 10:43 Chief complaint: Patient states: BACK PAIN WITH COUGH. Coronavirus screen: cough bp unrelated to allergies. Ebola Screen: No symptoms or risks identified at this time. Initial Sepsis Screen: Does the patient meet any 2 criteria? No. Patient's initial sepsis screen is negative. Does the patient have a suspected source of infection? No. Patient's initial sepsis screen is negative. Risk Assessment: Do you want to hurt yourself or someone else? Patient reports no desire to harm self or others. Onset of symptoms is unknown. 10:43 Method Of Arrival: Ambulatory bp 10:43 Acuity: MIKE 4 bp Triage Assessment: 10:44 General: Appears in no apparent distress. comfortable, Behavior is cooperative, bp appropriate for age, anxious. Pain: Complains of pain in back. EENT: No deficits noted. Neuro: No deficits noted. Cardiovascular: No deficits noted. Respiratory: No deficits noted. GI: No signs and/or symptoms were reported involving the gastrointestinal system. : No signs and/or symptoms were reported regarding the genitourinary system. Derm: No deficits noted. Musculoskeletal: No deficits noted. Historical: - Allergies: 10:44 Cinnamon; bp - Home Meds: 10:44 None [Active]; bp - PMHx: 10:44 None; bp - Immunization history:: Adult Immunizations unknown. - Social history:: Smoking status: Patient reports the use of cigarette tobacco products, smokes one pack cigarettes per day. - Family history:: not pertinent. - Hospitalizations: : No recent hospitalization is reported. Screenin:46 Abuse screen: Denies threats or abuse. Denies injuries from another. Nutritional bp screening: No deficits noted. Tuberculosis screening: No symptoms or risk factors identified. Fall Risk None identified. Assessment: 10:46 General: SEE TRIAGE NOTE. bp 11:10 Reassessment: Pt. went to X-ray. rb1 11:35 Reassessment: CXR UNREMARKABLE. NO S/S ACUTE DISTRESS. bp 12:06 Reassessment: PT D/C HOME AMBULATORY, DX WITH THORAX MUSCLE STRAIN. bp Vital Signs: 10:43 BP 146 / 106; Pulse 75; Resp 16; Temp 98.7; Pulse Ox 94% on R/A; bp 11:35 BP 136 / 95; Pulse 88; Resp 17; Pulse Ox 95% ; bp ED Course: 10:28 Patient arrived in ED. ag5 10:35 Hung Eldridge MD is Attending Physician. rn 10:42 Segundo Ridley, JASON is Primary Nurse. bp 10:44 Triage completed. bp 10:44 Arm band placed on. bp 10:46 Patient has correct armband on for positive identification. Placed in gown. Bed in low bp position. Call light in reach. Side rails up X2. 11:16 XRAY Chest Pa And Lat (2 Views) In Process Unspecified. EDMS 12:06 No provider procedures requiring assistance completed. Patient did not have IV access bp during this emergency room visit. Administered Medications: No medications were administered Outcome: 11:38 Discharge ordered by . rn 12:06 Discharged to home ambulatory. bp 12:06 Condition: stable 12:06 Discharge instructions given to patient, Instructed on discharge instructions, follow up and referral plans. medication usage, Demonstrated understanding of instructions, follow-up care, medications, Prescriptions given X 2. 12:07 Patient left the ED. bp Signatures: Dispatcher [employer] EDMO Hung Eldridge MD MD rn Barber, Rebecca, RN RN rb1 Segundo Ridley RN RN Bernard Lance ag5
--- NOTE | 2020-05-10 11:39 | EDPHYS ---
Physician Documentation [facility] Name: Ej Spaulding Age: 35 yrs Sex: Male : 1985 Arrival Date: 05/10/2020 Time: 10:28 Bed 7 Private MD: ED Physician Hung Eldridge HPI: 05/10 11:04 This 35 yrs old Male presents to ER via Ambulatory with complaints of Cough, rn Low Back Pain. 11:04 This 35 yrs old Male presents to ER via Ambulatory with complaints of Cough, rn left flank pain. 11:04 The patient or guardian reports cough. Onset: The symptoms/episode began/occurred 2 rn day(s) ago. Severity of symptoms: At their worst the symptoms were moderate, in the emergency department the symptoms have improved. Modifying factors: The symptoms are alleviated by nothing, the symptoms are aggravated by nothing. The patient has not experienced similar symptoms in the past. The patient has not recently seen a physician. Reports thinks ate bad pizza 2 days ago, was throwing up and felt left flank pain after throwing up "hardcore". NO longer vomiting/diarrhea. + mild cough, no sob, no pain with deep breath, + smoker, no fever. Reports when coughs now having left flank pain. No injury to ribs or fall. . Historical: - Allergies: 10:44 Cinnamon; bp - Home Meds: 10:44 None [Active]; bp - PMHx: 10:44 None; bp - Immunization history:: Adult Immunizations unknown. - Social history:: Smoking status: Patient reports the use of cigarette tobacco products, smokes one pack cigarettes per day. - Family history:: not pertinent. - Hospitalizations: : No recent hospitalization is reported. ROS: 11:04 Constitutional: Negative for fever, chills, and weight loss, Eyes: Negative for injury, rn pain, redness, and discharge, Neck: Negative for injury, pain, and swelling, Cardiovascular: Negative for chest pain, palpitations, and edema, Respiratory: Negative for shortness of breath, cough, wheezing, and pleuritic chest pain, Abdomen/GI: Negative for abdominal pain, nausea, vomiting, diarrhea, and constipation, Back: + left flank/mid back pain MS/Extremity: Negative for injury and deformity, Skin: Negative for injury, rash, and discoloration, Neuro: Negative for headache, weakness, numbness, tingling, and seizure. Exam: 11:04 Constitutional: This is a well developed, well nourished patient who is awake, alert, rn and in no acute distress. Ambulatory to room without difficulty. Head/Face: Normocephalic, atraumatic. Cardiovascular: Regular rate and rhythm . No pulse deficits. Respiratory: No increased work of breathing, no retractions or nasal flaring. Abdomen/GI: soft, non-tender, non-distended, no masses Back: No spinal tenderness. No costovertebral tenderness. Full range of motion. MS/ Extremity: Pulses equal, no cyanosis. Neurovascular intact. Full, normal range of motion. Equal circumference. Neuro: Awake and alert, GCS 15, oriented to person, place, time, and situation. Cranial nerves II-XII grossly intact. Motor strength 5/5 in all extremities. Sensory grossly intact. Cerebellar exam normal. Normal gait. Vital Signs: 10:43 BP 146 / 106; Pulse 75; Resp 16; Temp 98.7; Pulse Ox 94% on R/A; bp 11:35 BP 136 / 95; Pulse 88; Resp 17; Pulse Ox 95% ; bp MDM: 10:35 Patient medically screened. rn 11:37 Differential Diagnosis: Bronchitis Viral Syndrome Pneumonia Other pneumothorax, rn pleurisy, muscle strain, rib fracture, viral syndrome. Data reviewed: vital signs, nurses notes, radiologic studies, plain films, and as a result, I will discharge patient. Counseling: I had a detailed discussion with the patient and/or guardian regarding: the historical points, exam findings, and any diagnostic results supporting the discharge/admit diagnosis, radiology results, the need for outpatient follow up, to return to the emergency department if symptoms worsen or persist or if there are any questions or concerns that arise at home. Special discussion: I discussed with the patient/guardian in detail that at this point there is no indication for admission to the hospital. It is understood, however, that if the symptoms persist or worsen the patient needs to return immediately for re-evaluation. ED course: Most likely muscular strain from vomiting/coughing. Neg cxr for pneumothorax/pneumonia/effusion/rib injury.. 05/10 10:44 Order name: XRAY Chest Pa And Lat (2 Views); Complete Time: 11:37 rn Administered Medications: No medications were administered Disposition: 05/10/20 11:38 Discharged to Home. Impression: Cough, Strain of muscle and tendon of back wall of thorax. - Condition is Stable. - Discharge Instructions: Muscle Strain, Cough, Adult. - Prescriptions for Cyclobenzaprine 10 mg Oral Tablet - take 1 tablet by ORAL route every 8 hours As needed; 15 tablet. Guaifenesin AC 10- 100 mg/5 mL Oral Liquid - take 10 milliliter by ORAL route every 4 hours As needed; 240 milliliter. - Medication Reconciliation Form, Thank You Letter, Antibiotic Education, Prescription Opioid Use, Work release form form. - Follow up: Private Physician; When: As needed; Reason: Recheck today's complaints, Re-evaluation by your physician. - Problem is new. - Symptoms have improved. Signatures: Dispatcher [employer] EDMS Hung Eldridge MD MD rn Peltier, Brian, RN RN bp Corrections: (The following items were deleted from the chart) 12:07 11:38 05/10/2020 11:38 Discharged to Home. Impression: Cough; Strain of muscle and bp tendon of back wall of thorax. Condition is Stable. Discharge Instructions: Muscle Strain, Cough, Adult. Prescriptions for Cyclobenzaprine 10 mg Oral Tablet - take 1 tablet by ORAL route every 8 hours As needed; 15 tablet, Guaifenesin AC 10-100 mg/5 mL Oral Liquid - take 10 milliliter by ORAL route every 4 hours As needed; 240 milliliter. and Forms are Medication Reconciliation Form, Thank You Letter, Antibiotic Education, Prescription Opioid Use. Follow up: Private Physician; When: As needed; Reason: Recheck today's complaints, Re-evaluation by your physician. Problem is new. Symptoms have improved. rn
[2020-05-12 19:02] VITALS: TEMP 98.7
[2020-05-12 19:03] VITALS: BP 136/95; O2SAT 95
== END 2020-05-10 12:07 | disposition home or self-care (01) ==
LOC: ER 10:25
DX: R05 Cough (principal); S29.012A Strain of muscle and tendon of back wall of thorax, initial encounter; X58.XXXA Exposure to other specified factors, initial encounter; Z91.018 Allergy to other foods; F17.210 Nicotine dependence, cigarettes, uncomplicated
CPT/HCPCS: 71046; 99283

== ENCOUNTER 2020-06-29 12:33 | Emergency (ER) | payer SELFPAY ==
[2020-06-29] MEDS ORDERED: LIDOCAINE 1% MPF 5 ML VIAL ONE (14:34)
[2020-06-29] MEDS ORDERED: LIDOCAINE 1% W/EPI 1:100,000 MDV 50 ML VIAL ONE (14:35)
--- NOTE | 2020-06-29 14:43 | EDPHYS ---
Physician Documentation [facility] Name: Ej Spaulding Age: 35 yrs Sex: Male : 1985 Arrival Date: 06/29/2020 Time: 12:34 Bed 23 Private MD: MARIE Physician Jesús Petty HPI: 06/29 14:15 This 35 yrs old Male presents to ER via Ambulatory with complaints of Facial cp Swelling. 14:15 the patient presents with a swollen area of the right facial cheek. cp 14:15 Description: swollen. Onset: The symptoms/episode began/occurred 1 week(s) ago. cp Possible cause(s): unknown. Associated signs and symptoms: Pertinent negatives: discharge, drainage, fever, headache. Historical: - Allergies: 13:05 Cinnamon; ca1 - Home Meds: 13:05 None [Active]; ca1 - PMHx: 13:05 None; ca1 - PSHx: 13:05 None; ca1 - Immunization history:: Adult Immunizations up to date, Last tetanus immunization: < 5 years ago Flu vaccine is not up to date. - Social history:: Smoking status: Patient reports the use of cigarette tobacco products, denies chronic smoking, but will smoke occasionally. ROS: 14:20 Skin: Positive for swelling, of the right facial cheek, Negative for rash. cp 14:20 Constitutional: Negative for body aches, chills, fever. cp 14:20 All other systems are negative. Exam: 14:25 Constitutional: The patient appears in no acute distress, alert, awake, non-toxic, well cp developed, well nourished, obese. 14:25 Head/face: Noted is erythema, of the right cheek, of the minimal, swelling, that is cp mild, of the right cheek. 14:25 Eyes: Periorbital structures: appear normal, Conjunctiva: normal, no exudate, no injection, Lids and lashes: appear normal, bilaterally. 14:25 ENT: External ear(s): are unremarkable, Nose: is normal, Mouth: Lips: moist, Oral mucosa: moist, Posterior pharynx: Airway: no evidence of obstruction, patent. 14:25 Chest/axilla: Inspection: normal. 14:25 Cardiovascular: Rate: normal. 14:25 Respiratory: the patient does not display signs of respiratory distress, Respirations: normal. 14:25 Skin: no rash present. Vital Signs: 13:02 BP 134 / 83; Pulse 85; Resp 16 S; Temp 97.5(TE); Pulse Ox 96% on R/A; Weight 131.54 kg ca1 (R); Height 5 ft. 5 in. (165.10 cm) (R); Pain 0/10; 13:02 Body Mass Index 48.26 (131.54 kg, 165.10 cm) ca1 MDM: 13:58 Patient medically screened. cp 14:25 Differential diagnosis: abscess, allergic reaction, cellulitis, insect bite. cp 14:41 Data reviewed: vital signs, nurses notes, and as a result, I will discharge patient. cp 14:41 Counseling: I had a detailed discussion with the patient and/or guardian regarding: the cp historical points, exam findings, and any diagnostic results supporting the discharge/admit diagnosis, to return to the emergency department if symptoms worsen or persist or if there are any questions or concerns that arise at home. 06/29 14:08 Order name: I\T\D Setup; Complete Time: 14:22 cp Administered Medications: No medications were administered Disposition: 15:00 Chart complete. cp 06/30 10:52 Co-signature as Attending Physician, Jesús Petty MD I agree with the assessment and darrel plan of care. Disposition: 06/29/20 14:42 Discharged to Home. Impression: Cellulitis of face - right cheek. - Condition is Stable. - Discharge Instructions: Cellulitis, Adult. - Prescriptions for Bactrim DS 800- 160 mg Oral Tablet - take 1 tablet by ORAL route every 12 hours for 10 days; 20 tablet. - Work release form, Medication Reconciliation Form, Thank You Letter, Antibiotic Education, Prescription Opioid Use form. - Follow up: Private Physician; When: 2 - 3 days; Reason: Worsening of condition. - Problem is new. - Symptoms are unchanged. Signatures: Jesús Petty MD MD cha Williams, Irene, RN RN iw Page, Corey, PA PA cp Ella Negro RN RN ca1 Corrections: (The following items were deleted from the chart) 06/29 15:12 14:42 06/29/2020 14:42 Discharged to Home. Impression: Cellulitis of face - right iw cheek. Condition is Stable. Forms are Medication Reconciliation Form, Thank You Letter, Antibiotic Education, Prescription Opioid Use. Follow up: Private Physician; When: 2 - 3 days; Reason: Worsening of condition. Problem is new. Symptoms are unchanged. cp
--- NOTE | 2020-06-29 14:43 | ER ---
Nurse's Notes [facility] Name: Ej Spaulding Age: 35 yrs Sex: Male : 1985 Arrival Date: 06/29/2020 Time: 12:34 Bed 23 Private MD: Diagnosis: Cellulitis of face-right cheek Presentation: 06/29 13:02 Chief complaint: Patient states: Abscess on R lower cheek >1week. Denies fever. ca1 Coronavirus screen: Client denies travel out of the [place] in the last 14 days. At this time, the client does not indicate any symptoms associated with coronavirus-19. The client denies any previous COVID testing. Ebola Screen: Patient negative for fever greater than or equal to 101.5 degrees Fahrenheit, and additional compatible Ebola Virus Disease symptoms Patient denies exposure to infectious person. Patient denies travel to an Ebola-affected area in the 21 days before illness onset. No symptoms or risks identified at this time. Initial Sepsis Screen: Does the patient meet any 2 criteria? No. Patient's initial sepsis screen is negative. Does the patient have a suspected source of infection? No. Patient's initial sepsis screen is negative. Risk Assessment: Do you want to hurt yourself or someone else? Patient reports no desire to harm self or others. Onset of symptoms was June 29, 2020. 13:02 Method Of Arrival: Ambulatory ca1 13:02 Acuity: MIKE 4 ca1 Triage Assessment: 15:11 General: Appears in no apparent distress. Behavior is calm. iw Historical: - Allergies: 13:05 Cinnamon; ca1 - Home Meds: 13:05 None [Active]; ca1 - PMHx: 13:05 None; ca1 - PSHx: 13:05 None; ca1 - Immunization history:: Adult Immunizations up to date, Last tetanus immunization: < 5 years ago Flu vaccine is not up to date. - Social history:: Smoking status: Patient reports the use of cigarette tobacco products, denies chronic smoking, but will smoke occasionally. Screenin:11 Abuse screen: Denies threats or abuse. Denies injuries from another. Nutritional iw screening: No deficits noted. Tuberculosis screening: No symptoms or risk factors identified. Fall Risk None identified. Assessment: 14:00 General: Appears in no apparent distress. Behavior is calm, cooperative. Pain: iw Complains of pain in right jaw. Neuro: Level of Consciousness is awake, alert, obeys commands, Oriented to person, place, time, situation, Moves all extremities. Full function. Cardiovascular: Patient's skin is warm and dry. Respiratory: Respiratory effort is even, unlabored, Respiratory pattern is regular, symmetrical. Derm: Skin is intact, is healthy with good turgor. Musculoskeletal: Range of motion: intact in all extremities. Vital Signs: 13:02 BP 134 / 83; Pulse 85; Resp 16 S; Temp 97.5(TE); Pulse Ox 96% on R/A; Weight 131.54 kg ca1 (R); Height 5 ft. 5 in. (165.10 cm) (R); Pain 0/10; 13:02 Body Mass Index 48.26 (131.54 kg, 165.10 cm) ca1 ED Course: 12:34 Patient arrived in ED. as 13:05 Triage completed. ca1 13:05 Arm band placed on right wrist. ca1 13:58 Jesús Bach PA is PHCP. cp 13:58 Jesús Petty MD is Attending Physician. cp 14:10 Patient has correct armband on for positive identification. iw 14:17 Chani Guallpa, RN is Primary Nurse. iw 15:11 No provider procedures requiring assistance completed. Patient did not have IV access iw during this emergency room visit. Administered Medications: No medications were administered Outcome: 14:42 Discharge ordered by MD. cp 15:11 Discharged to home ambulatory. iw 15:11 Condition: good 15:11 Discharge instructions given to patient, Instructed on discharge instructions, follow up and referral plans. medication usage, Demonstrated understanding of instructions, follow-up care, medications, Prescriptions given X 2. 15:12 Patient left the ED. iw Signatures: Kathryn Ramírez as Chani Guallpa, RN RN iw Jesús Bach PA PA cp Acob, Cheryl, RN RN ca1
[2020-06-29 15:39] VITALS: BP 134/83; TEMP 97.5; O2SAT 96
== END 2020-06-29 15:12 | disposition home or self-care (01) ==
LOC: ER 12:33
DX: L03.211 Cellulitis of face (principal); F17.210 Nicotine dependence, cigarettes, uncomplicated; Z91.018 Allergy to other foods
CPT/HCPCS: 99282

== ENCOUNTER 2022-01-11 17:31 | Emergency (ER) | payer SELFPAY ==
--- NOTE | 2022-01-11 18:52 | RAD REPORT ---
EXAM DESCRIPTION: RAD - Tib Fib Right - 01/11/2022 6:39 pm CLINICAL HISTORY: PAIN COMPARISON: Tibia Fibula Right dated 09/19/2015 FINDINGS: No acute fracture. No malalignment. No significant focal degenerative changes. IMPRESSION: No acute osseous abnormality involving the right tibia or fibula.
[2022-01-11] MEDS ORDERED: KETOROLAC 30 MG/ML INJ ONE (19:12)
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
--- NOTE | 2022-01-11 19:12 | ER ---
Nurse's Notes [facility] Name: Ej Spaulding Age: 36 yrs Sex: Male : 1985 Arrival Date: 01/11/2022 Time: 17:34 Bed 12 Private MD: Diagnosis: Contusion of right lower leg Presentation: 01/11 17:48 Chief complaint: Patient states: has had a bump on right mota for a couple days. iw Coronavirus screen: At this time, the client does not indicate any symptoms associated with coronavirus-19. Ebola Screen: Patient negative for fever greater than or equal to 101.5 degrees Fahrenheit, and additional compatible Ebola Virus Disease symptoms Patient denies exposure to infectious person. Patient denies travel to an Ebola-affected area in the 21 days before illness onset. No symptoms or risks identified at this time. Initial Sepsis Screen: Does the patient meet any 2 criteria? No. Patient's initial sepsis screen is negative. Does the patient have a suspected source of infection? No. Patient's initial sepsis screen is negative. Risk Assessment: Do you want to hurt yourself or someone else? Patient reports no desire to harm self or others. Onset of symptoms was January 09, 2022. 17:48 Method Of Arrival: Ambulatory iw 17:48 Acuity: MIKE 4 iw Historical: - Allergies: 17:49 Cinnamon; iw - Immunization history:: Adult Immunizations unknown. - Social history:: Smoking status: unknown. Screenin:47 Abuse screen: Denies threats or abuse. Denies injuries from another. Nutritional iw screening: No deficits noted. Tuberculosis screening: No symptoms or risk factors identified. Fall Risk None identified. Assessment: 18:47 General: Appears in no apparent distress. Behavior is calm, cooperative. Pain: iw Complains of pain in right mota. Neuro: Level of Consciousness is awake, alert, obeys commands, Oriented to person, place, time, situation. Vital Signs: 18:46 BP 135 / 84; Pulse 74; Resp 16; Temp 98.2; Pulse Ox 98% on R/A; iw ED Course: 17:34 Patient arrived in ED. 2 17:42 Ciara Ramirez FNP [facility] 7 17:42 Jesús Petty MD is Attending Physician. 7 17:48 Ramu, Chani, RN is Primary Nurse. iw 17:49 Triage completed. iw 17:50 Arm band placed on. iw 18:41 XRAY Tib Fib RIGHT In Process Unspecified. EDMS 18:47 No provider procedures requiring assistance completed. Patient did not have IV access iw during this emergency room visit. Administered Medications: 19:11 Drug: Ketorolac 60 mg Route: IM; Site: left vastus lateralis; ab2 Outcome: 19:11 Discharge ordered by . [facility] 19:21 Discharged to home ambulatory. ab2 19:21 Condition: good 19:21 Discharge instructions given to patient, Instructed on discharge instructions, follow up and referral plans. Demonstrated understanding of instructions, follow-up care. 19:22 Patient left the ED. ab2 Signatures: Dispatcher [employer] EDChani Pineda, RN RN Shaylee Ly Alexis ab2 Ciara Ramirez, COMMUNICATIONS ASSOCIATE COMMUNICATIONS ASSOCIATE [facility]
[2022-01-11 19:55] VITALS: BP 135/84; TEMP 98.2; O2SAT 98
== END 2022-01-11 19:22 | disposition home or self-care (01) ==
LOC: ER 17:31
DX: S80.11XA Contusion of right lower leg, initial encounter (principal); Z91.018 Allergy to other foods
CPT/HCPCS: 96372; 99283

== ENCOUNTER 2024-06-30 11:05 | Emergency (ER) | payer OTHER ==
--- NOTE | 2024-06-30 11:55 | RAD REPORT ---
EXAM: CT brain without contrast HISTORY: head injury COMPARISON: 12/02/2018 TECHNIQUE: Multiple contiguous axial images were obtained and a CT of the brain without contrast. Sag ittal and coronal reformats were performed. One or more of the following dose reduction techniques were used: Automated exposure control, adjust ment of the mA and/or kV according to patient size, and/or iterative reconstruction. FINDINGS: No evidence of hydrocephalus, intracranial hemorrhage, or extra-axial fluid collection. The brain is normal in morphology. No evidence of midline shift or areas of brain edema. The calvarium is intact. The visualized paranasal sinuses and mastoid air cells are essentially clear . Large right posterior scalp hematoma. IMPRESSION: No evidence of acute intracranial abnormality. Large right posterior scalp hematoma. EXAM: CT of the cervical spine without contrast HISTORY: Neck pain, injury head injury TECHNIQUE: Multiple contiguous axial images were obtained in a CT of the cervical spine without contr ast. Sagittal and coronal reformats were performed. FINDINGS: The vertebral bodies demonstrate normal height and alignment. No evidence of acute fracture or subluxation.. No degenerative changes are present. No prevertebral soft tissue swelling is seen. The posterior facets are well aligned. Normal alignment of the skull base with the cervical spine is seen. The lung apices are unremarkable. IMPRESSION: No evidence of acute osseous abnormality of the cervical spine.
--- NOTE | 2024-06-30 12:21 | ER ---
Nurse's Notes [facility] Name: Ej Spaulding Age: 39 yrs Sex: Male : 1985 Arrival Date: 06/30/2024 Time: 11:05 Bed DX3 Private MD: Diagnosis: Unspecified injury of head, initial encounter;Concussion with loss of consciousness of unspecified duration;Postconcussional syndrome Presentation: 06/30 11:32 Chief complaint: Patient states: "I fell backwards onto concrete Saturday, I keep hb finding myself waking up." Also c/o headache, nausea, and dizziness. Care prior to arrival: None. Mechanism of Injury: Fall from standing position. 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 11:32 Acuity: MIKE 3 hb 11:32 Method Of Arrival: Ambulatory hb 11:34 Coronavirus screen: At this time, the client does not indicate any symptoms associated hb with coronavirus-19. Ebola Screen: No symptoms or risks identified at this time. Initial Sepsis Screen: Does the patient meet any 2 criteria? No. Patient's initial sepsis screen is negative. Does the patient have a suspected source of infection? No. Patient's initial sepsis screen is negative. Risk Assessment: Do you want to hurt yourself or someone else? Patient reports no desire to harm self or others. Onset of symptoms was June 27, 2024. Trauma Activation: Not Applicable Physician: ED Physician; Name: ; Notified At: ; Arrived At: Physician: General Surgeon; Name: ; Notified At: ; Arrived At: Physician: Radiology; Name: ; Notified At: ; Arrived At: Physician: Respiratory; Name: ; Notified At: ; Arrived At: Physician: Lab; Name: ; Notified At: ; Arrived At: Historical: - Allergies: 11:35 Cinnamon; hb - Immunization history:: Adult Immunizations up to date. - Infectious Disease History:: Denies. - Family history:: not pertinent. - Hospitalizations: : No recent hospitalization is reported. - Social history:: Smoking status: Patient denies any tobacco usage or history of. Screenin:31 [facility] ED Fall Risk Assessment (Adult) History of falling in the last 3 months, ap3 including since admission No falls in past 3 months (0 pts) Confusion or Disorientation No (0 pts) Intoxicated or Sedated No (0 pts) Impaired Gait No (0 pts) Mobility Assist Device Used No (0 pt) Altered Elimination No (0 pt) Score/Fall Risk Level 0 - 2 = Low Risk Oriented to surroundings, Maintained a safe environment, Educated pt \\T\\ family on fall prevention, incl call for assistance when getting out of bed, Assessed \\T\\ reinforced patient's understanding of fall precautions, Hourly rounding (assess needs \\T\\ fall precautionary measures) done, Used ambulatory aids as needed (educated on \\T\\ assisted with), Used gait belt as appropriate. Abuse screen: Denies threats or abuse. Nutritional screening: No deficits noted. Tuberculosis screening: No symptoms or risk factors identified. Assessment: 12:30 General: Appears in no apparent distress. Behavior is calm, cooperative, appropriate ap3 for age. Pain: Denies pain. Neuro: Level of Consciousness is awake, alert, obeys commands, Oriented to person, place, time, situation, Appropriate for age. Cardiovascular: Patient's skin is warm and dry. Respiratory: Airway is patent Respiratory effort is even, unlabored, Respiratory pattern is regular, symmetrical. Vital Signs: 11:34 BP 134 / 97; Pulse 71; Resp 16; Temp 97.7; Pulse Ox 97% on R/A; Pain 3/10; hb 11:34 Pain Scale: Adult hb Paterson Coma Score: 12:17 Eye Response: spontaneous(4). Motor Response: obeys commands(6). Verbal Response: rn oriented(5). Total: 15. 12:17 Eye Response: spontaneous(4). Motor Response: obeys commands(6). Verbal Response: rn oriented(5). Total: 15. ED Course: 11:08 Patient arrived in ED. mg5 11:21 Hung Eldridge MD is Attending Physician. rn 11:34 Triage completed. hb 11:46 CT Head C Spine In Process Unspecified. EDMS 12:32 Arm band placed on right wrist. ap3 12:32 Patient has correct armband on for positive identification. Bed in low position. Call ap3 light in reach. Side rails up X 1. Adult w/ patient. Provided Education on: discharge instructions. 12:32 No provider procedures requiring assistance completed. Patient did not have IV access ap3 during this emergency room visit. Administered Medications: No medications were administered Medication: 12:33 VIS not applicable for this client. ap3 Outcome: 12:20 Discharge ordered by . rn 12:32 Discharged to home ambulatory, ap3 12:32 Condition: good 12:32 Discharge instructions given to patient, Instructed on discharge instructions, follow up and referral plans. Demonstrated understanding of instructions, follow-up care, 12:33 Patient left the ED. ap3 Signatures: Dispatcher [employer] EDMS Hung Eldridge MD MD rn Baxter, Heather, RN RN hb Prokisch, Amanda, RN RN ap3 Lovely Parker mg5 Corrections: (The following items were deleted from the chart) 11:34 11:23 Chief complaint: hb hb
--- NOTE | 2024-06-30 12:21 | EDPHYS ---
Physician Documentation [facility] Name: Ej Spaulding Age: 39 yrs Sex: Male : 1985 Arrival Date: 06/30/2024 Time: 11:05 Bed DX3 Private MD: ED Physician Hung Eldridge HPI: 06/30 12:17 This 39 yrs old Male presents to ER via Ambulatory with complaints of Head rn Injury With LOC-Adult, Syncope. 12:17 The patient or guardian reports injury, pain, swelling. The complaints affect the right rn side of the back of head. 12:17 Onset: The symptoms/episode began/occurred 2 day(s) ago. Severity of symptoms: At their rn worst the symptoms were moderate, in the emergency department the symptoms have improved. The patient has not experienced similar symptoms in the past. Patient reports walking backwards 2 days ago, thinks tripped or slipped and hit the back of her head on the ground. Had large hematoma. Was feeling okay until this morning was having an episode where he felt like he fell asleep or woke up while at work. 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 No focal neurological deficits. Does not take blood thinners. Was not evaluated for the fall or injury prior to today. States hematoma is improving with ice and has kept it clean with soap daily. Historical: - Allergies: 11:35 Cinnamon; hb - Immunization history:: Adult Immunizations up to date. - Infectious Disease History:: Denies. - Family history:: not pertinent. - Hospitalizations: : No recent hospitalization is reported. - Social history:: Smoking status: Patient denies any tobacco usage or history of. 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 Ambulatory from lobby to chair without assistance or difficulty Head/Face: Small to moderate hematoma, well-healing, with superficial abrasion on top of scalp posteriorly. No evidence of infection or fluctuance. No open wounds. Neck: No midline cervical tenderness. Neuro: Awake and alert, GCS 15, oriented to person, place, time, and situation. Cranial nerves II-XII grossly intact. Motor strength 5/5 in all extremities. Sensory grossly intact. Cerebellar exam normal. Normal gait. Vital Signs: 11:34 BP 134 / 97; Pulse 71; Resp 16; Temp 97.7; Pulse Ox 97% on R/A; Pain 3/10; hb 11:34 Pain Scale: Adult hb Shipman Coma Score: 12:17 Eye Response: spontaneous(4). Motor Response: obeys commands(6). Verbal Response: rn oriented(5). Total: 15. 12:17 Eye Response: spontaneous(4). Motor Response: obeys commands(6). Verbal Response: rn oriented(5). Total: 15. MDM: 11:21 Medical Screening Exam initiated rn 12:17 Differential diagnosis: Contusion of Hematoma on Intracranial bleed- Concussion rn cerebral contusion. Data reviewed: vital signs, nurses notes, radiologic studies, CT scan, and as a result, I will discharge patient. Counseling: I had a detailed discussion with the patient and/or guardian regarding the historical points, exam findings, and any diagnostic results supporting the discharge/admit diagnosis, lab results, radiology results, the need for outpatient follow up, to return to the emergency department if symptoms worsen or persist or if there are any questions or concerns that arise at home. Special discussion: Based on the patient's history, exam and DX evaluation, there is no indication for emergent intervention or inpatient TX. It is understood by the patient/guardian that if the SXs persist or worsen they need to return immediately for re-evaluation. I discussed with the patient/guardian in detail that at this point there is no indication for admission to the hospital. It is understood, however, that if the symptoms persist or worsen the patient needs to return immediately for re-evaluation. 06/30 11:22 Order name: CT Head C Spine; Complete Time: 11:59 rn Administered Medications: No medications were administered Disposition Summary: 06/30/24 12:20 Discharge Ordered Notes: Location: Home rn Problem: new rn Symptoms: have improved rn Condition: Stable rn Diagnosis - Unspecified injury of head, initial encounter rn - Concussion with loss of consciousness of unspecified duration rn - Postconcussional syndrome rn Followup: rn - With: Private Physician - When: As needed - Reason: Recheck today's complaints, Re-evaluation by your physician Discharge Instructions: - Discharge Summary Sheet rn - Head Injury, Adult rn - Hematoma rn - Post-Concussion Syndrome rn Forms: - Medication Reconciliation Form rn - Antibiotic nocturnist physician - Prescription Opioid Use rn - Patient Portal Instructions rn - Leadership Thank You Letter rn Signatures: Dispatcher [employer] Hung Rinaldi MD MD rn Baxter, Heather RN Sofia Mix RN RN ap3
[2024-06-30 13:56] VITALS: BP 134/97; TEMP 97.7; O2SAT 97
== END 2024-06-30 12:33 | disposition home or self-care (01) ==
LOC: ER 11:05
DX: S06.0X9A Concussion with loss of consciousness of unspecified duration, initial encounter (principal); W01.0XXA Fall on same level from slipping, tripping and stumbling without subsequent striking against object, initial encounter
CPT/HCPCS: 70450; 72125

== ENCOUNTER 2024-07-04 12:43 | Emergency (ER) | payer OTHER ==
--- NOTE | 2024-07-04 13:30 | EDPHYS ---
Physician Documentation [facility] Name: Ej Spaulding Age: 39 yrs Sex: Male : 1985 Arrival Date: 07/04/2024 Time: 12:43 Bed IW3 Private MD: ED Physician Jesús Petty HPI: 07/04 13:22 This 39 yrs old Male presents to ER via Ambulatory with complaints of Lump on dr5 head post injury. 13:22 Pt is a 39 year old male presenting with swelling / pain to right side of head with dr5 redness.. Historical: - Allergies: 13:07 Cinnamon; aa5 - Home Meds: 13:07 None [Active]; aa5 - PMHx: 13:07 None; aa5 - PSHx: 13:07 None; aa5 - Immunization history:: Adult Immunizations unknown. - Infectious Disease History:: Denies. - Social history:: Smoking status: Patient reports the use of cigarette tobacco products. ROS: 13:22 Constitutional: as per hpi dr5 Exam: 13:22 Constitutional: This is a well developed, well nourished patient who is awake, alert, dr5 and in no acute distress. 13:22 Head/face: Noted is abrasion(s), erythema, swelling, that is moderate, of the right side of the back of head, 13:28 Eyes: Pupils equal round and reactive to light, extra-ocular motions intact. Lids and dr5 lashes normal. Conjunctiva and sclera are non-icteric and not injected. Cornea within normal limits. Periorbital areas with no swelling, redness, or edema. Neck: Trachea midline, no thyromegaly or masses palpated, and no cervical lymphadenopathy. Supple, full range of motion without nuchal rigidity, or vertebral point tenderness. No Meningismus. Chest/axilla: Normal chest wall appearance and motion. Nontender with no deformity. No lesions are appreciated. Respiratory: Lungs have equal breath sounds bilaterally, clear to auscultation. No rales, rhonchi or wheezes noted. No increased work of breathing, no retractions or nasal flaring. Skin: Warm, dry with normal turgor. Normal color with no rashes, no lesions, and no evidence of cellulitis. Neuro: Awake and alert, GCS 15, oriented to person, place, time, and situation. Cranial nerves II-XII grossly intact. Motor strength 5/5 in all extremities. Sensory grossly intact. Cerebellar exam normal. Normal gait. 13:28 Skin: Honey crusted rash with surrounding erythema to right side of head.. Vital Signs: 13:06 BP 143 / 84; Pulse 70; Resp 18 S; Temp 97.5(TE); Pulse Ox 99% on R/A; Weight 95.25 kg aa5 (R); Height 5 ft. 5 in. (R); 13:06 Body Mass Index 34.95 (95.25 kg, 165.1 cm) aa5 MDM: 13:14 Medical Screening Exam initiated dr5 13:22 Differential diagnosis: viral Infection, URI, Contusion, Abrasion. Data reviewed: vital dr5 signs, nurses notes. Care significantly affected by the following Social Determinants of Health: Poor access to healthcare and/or lack of insurance, Poor access to transportation. Counseling: I had a detailed discussion with the patient and/or guardian regarding the historical points, exam findings, and any diagnostic results supporting the discharge/admit diagnosis, the presence of at least one elevated blood pressure reading (>120/80) during this emergency department visit, the need for outpatient follow up, for definitive care, to return to the emergency department if symptoms worsen or persist or if there are any questions or concerns that arise at home. Special discussion: Based on the patient's history, exam and DX evaluation, there is no indication for emergent intervention or inpatient TX. It is understood by the patient/guardian that if the SXs persist or worsen they need to return immediately for re-evaluation. ED course: Patient is well appearing. Normal neurological exam. Mild honey crusted rash noted on top of head. Will cover with Bactroban for possible impetigo. Follow up with PCP. 13:32 ED course: Pt asked if he should drink alcohol - advised to not drink until wound has dr5 fully healed.. Administered Medications: No medications were administered Disposition Summary: 07/04/24 13:30 Discharge Ordered Notes: Location: Home dr5 Condition: Stable dr5 Diagnosis - Contusion of other part of head dr5 Followup: dr5 - With: Emergency Department - When: As needed - Reason: Worsening of condition Followup: dr5 - With: Private Physician - When: 2 - 3 days - Reason: Recheck today's complaints, Continuance of care, Re-evaluation by your physician Discharge Instructions: - Discharge Summary Sheet dr5 Forms: - Medication Reconciliation Form dr5 - Antibiotic Education dr5 - Patient Portal Instructions dr5 - Leadership Thank You Letter dr5 Prescriptions: - mupirocin 2 % Topical ointment - apply 1 application TOPICAL route once for 7 days; 1 application; Refills: 0, dr5 Product Selection Permitted Signatures: Estefani Sun RN RN aa5 Adan Sylvester, JEN-C DATA PROCESSING CLERK-Cdr5
--- NOTE | 2024-07-04 13:30 | ER ---
Nurse's Notes [facility] Name: Ej Spaulding Age: 39 yrs Sex: Male : 1985 Arrival Date: 07/04/2024 Time: 12:43 Bed IW3 Private MD: Diagnosis: Contusion of other part of head Presentation: 07/04 13:06 Chief complaint: Patient states: "I fell and I was seen here for it but I have a bump aa5 on my head and I just want to make sure it's not infected". Coronavirus screen: At this time, the client does not indicate any symptoms associated with coronavirus-19. Ebola Screen: Patient denies travel to an Ebola-affected area in the 21 days before illness onset. Initial Sepsis Screen: Does the patient meet any 2 criteria? No. Patient's initial sepsis screen is negative. Does the patient have a suspected source of infection? No. Patient's initial sepsis screen is negative. Risk Assessment: Do you want to hurt yourself or someone else? Patient reports no desire to harm self or others. Onset of symptoms was July 04, 2024. 13:06 Method Of Arrival: Ambulatory aa5 13:06 Acuity: MIKE 5 aa5 Historical: - Allergies: 13:07 Cinnamon; aa5 - Home Meds: 13:07 None [Active]; aa5 - PMHx: 13:07 None; aa5 - PSHx: 13:07 None; aa5 - Immunization history:: Adult Immunizations unknown. - Infectious Disease History:: Denies. - Social history:: Smoking status: Patient reports the use of cigarette tobacco products. Screenin:49 [facility] ED Fall Risk Assessment (Adult) History of falling in the last 3 months, ss including since admission Yes- single mechanical fall (1 pt) Confusion or Disorientation No (0 pts) Intoxicated or Sedated No (0 pts) Impaired Gait No (0 pts) Mobility Assist Device Used No (0 pt) Altered Elimination No (0 pt) Score/Fall Risk Level 0 - 2 = Low Risk Oriented to surroundings, Maintained a safe environment. Abuse screen: Denies threats or abuse. Denies injuries from another. Nutritional screening: No deficits noted. Tuberculosis screening: Never had TB. Assessment: 13:49 General: Appears in no apparent distress. comfortable, Behavior is calm, cooperative. ss General: swelling noted to back of head. Pt reports that he was seen in ED last Saturday and that his swelling has gone down significantly since his initial visit, but was concerned because there was still a small area that was swollen.. Pain: Denies pain. Neuro: Level of Consciousness is awake, alert, obeys commands, Oriented to person, place, time, situation. Respiratory: Airway is patent Respiratory effort is even, unlabored, Respiratory pattern is regular, symmetrical. Derm: Skin is pink, warm \\T\\ dry. normal. Vital Signs: 13:06 BP 143 / 84; Pulse 70; Resp 18 S; Temp 97.5(TE); Pulse Ox 99% on R/A; Weight 95.25 kg aa5 (R); Height 5 ft. 5 in. (R); 13:06 Body Mass Index 34.95 (95.25 kg, 165.1 cm) aa5 ED Course: 12:55 Patient arrived in ED. ra3 13:06 Arm band placed on. aa5 13:07 Triage completed. aa5 13:14 Adan Sylvester [facility]-C [facility] dr5 13:14 Jesús Petty MD is Attending Physician. dr5 13:49 Patient has correct armband on for positive identification. ss 13:49 No provider procedures requiring assistance completed. Patient did not have IV access ss during this emergency room visit. Administered Medications: No medications were administered Medication: 13:49 VIS not applicable for this client. ss Outcome: 13:30 Discharge ordered by MD. dr5 13:51 Discharged to home ambulatory, ss 13:51 Condition: good 13:51 Discharge instructions given to patient, Instructed on discharge instructions, follow up and referral plans. medication usage, Demonstrated understanding of instructions, follow-up care, medications, Prescriptions given X 1, 13:51 Patient left the ED. ss Signatures: Estefani Sun, RN RN aa5 Ghislaine Garsia RN RN Miranda Dominguez ra3 Adan Sylvester FNP-C USED CAR RENOVATOR-Cdr5
[2024-07-04 23:09] VITALS: BP 143/84; TEMP 97.5; O2SAT 99
== END 2024-07-04 13:51 | disposition home or self-care (01) ==
LOC: ER 12:43
DX: S00.83XA Contusion of other part of head, initial encounter (principal); Z72.0 Tobacco use
CPT/HCPCS: 99283

== ENCOUNTER 2025-06-06 10:23 | Emergency (ER) | payer OTHER, SELFPAY ==
[2025-06-06] MEDS ORDERED: ONDANSETRON 4 MG/2 ML VIAL ONE (11:42)
[2025-06-06] MEDS ORDERED: NA CHLORIDE 0.9% 1,000 ML ONE (11:43)
[2025-06-06] MEDS ORDERED: KETOROLAC 30 MG/ML INJ ONE (11:43)
[2025-06-06 12:07] LABS: Absolute Lymphocytes (CBC) 1.2 K/uL (0.7-4.9); Hematocrit 48.1 % (39.6-49.0); Hemoglobin 16.1 g/dL (13.6-17.9); MCH 29.1 pg (27.0-35.0); MCHC 33.5 g/dL (32.0-36.0); MCV 87.0 fL (80-100); MPV 10.2 fL (7.6-11.3); Nucleated RBC Absolute Count 0.0 (0-0); Nucleated Red Blood Cells % 0.1 % (0-0); RBC Red Blood Cell Count 5.53 M/uL (4.33-5.43); White Blood Count 12.80 thou/uL (4.3-10.9)
--- NOTE | 2025-06-06 12:12 | RAD REPORT ---
EXAMINATION: CT Abdomen Pelvis Wo Contrast CLINICAL INDICATION: Male, 40 years old. stone protocol, urinary retention lower abd pain TECHNIQUE: CT abdomen and pelvis was performed, without IV contrast, as per department protocol. Axia l, sagittal and coronal reconstructions were obtained. One or more of the following dose reduction techniques were used: Automated exposure control, adjustment of the mA and kV according to the patien t size, and iterative reconstruction. Unless otherwise specified, incidental findings do not require dedicated imaging follow-up. COMPARISON: 12/21/2015 FINDINGS: The lack of intravenous contrast limits the sensitivity of this exam for evaluation of solid visceral organs, vascular structures, and retroperitoneum. LOWER CHEST: The visualized lung bases are clear. LIVER: Normal in size and contour. No focal lesion. BILIARY SYSTEM: Moderately distended gallbladder. No suspicious abnormalities. SPLEEN: Normal size. No focal lesion. PANCREAS: No mass, ductal dilation, or breezy-pancreatic fluid. ADRENALS: Normal; no mass. KIDNEYS AND URETERS: Normal size and contour. Mild left hydroureteronephrosis. Subtle 5 mm calculus a t the left vesicoureteral junction, could be the cause of obstruction. This is only seen on the sagittal and coronal views. URINARY BLADDER: Decompressed with James catheter in place. GASTROINTESTINAL TRACT: No evidence of bowel obstruction, significant free fluid, free air or abscess . Distal colonic diverticulosis without evidence of acute diverticulitis. APPENDIX: Normal appendix. LYMPH NODES: No lymphadenopathy. MUSCULOSKELETAL: No acute or suspicious osseous abnormality. ADDITIONAL FINDINGS: None. IMPRESSION: Mild left hydroureteronephrosis with 5 mm left vesicoureteral junction calculus. Other incidental fin dings as above. THIS REPORT CONTAINS FINDINGS THAT MAY BE CRITICAL TO PATIENT CARE. The findings were verbally commun icated via telephone to Bud Castro on 06/06/2025 12:08 PM.
[2025-06-06 12:26] LABS: ALT/SGPT 31.0 U/L (16-61); AST/SGOT 23.0 U/L (15-37); Albumin 4.0 g/dL (3.4-5.0); Albumin/Globulin Ratio 1.1 (1.1-1.8); Alkaline Phosphatase 52.0 U/L (45-117); Anion Gap 12.3 mEq/L (5.0-15.0); BUN Blood Urea Nitrogen 18.0 mg/dL (7-18); Globulin 3.8 g/dL (2.3-3.5); Glucose Level 102.0 mg/dL (74-106); Lipase 31.0 U/L (13-75); Potassium 4.3 mEq/L (3.5-5.1)
[2025-06-06 12:30] LABS: Urine Culture Reflex Order NOT NEEDED; Urine Microscopic Reflex YN ORDER UMIC
--- NOTE | 2025-06-06 12:43 | EDPHYS ---
Physician Documentation [facility] Name: Ej Spaulding Age: 40 yrs Sex: Male : 1985 Arrival Date: 06/06/2025 Time: 10:23 Bed 4 Private MD: ED Physician Bud Castro HPI: 06/06 10:53 This 40 yrs old Male presents to ER via Ambulatory with complaints of sp3 Abdominal Pain, URINARY PROBLEM. 10:53 40-year-old male with no significant past medical history presents with urinary sp3 retention and lower abdominal pain over the last 24 hours with last none full void approximately 3 AM. Patient states he has urge to urinate but is unable to give a full sample. No history of UTI or kidney stones in the past. He denies any other symptoms including headache, neck pain, chest pain, shortness of breath, fever, vomiting, diarrhea, or any other signs or symptoms on ROS at this time.. Historical: - Allergies: 10:31 Cinnamon; jb4 - PMHx: 10:31 None; jb4 - PSHx: 10:31 None; jb4 - Immunization history:: Adult Immunizations up to date. - Infectious Disease History:: Denies. - Social history:: Smoking status: Patient reports the use of cigarette tobacco products, denies chronic smoking, but will smoke occasionally, Patient uses alcohol, occasionally. ROS: 10:54 Constitutional: Negative for fever, chills, and weight loss, Eyes: Negative for injury, sp3 pain, redness, and discharge, Neck: Negative for injury, pain, and swelling, Cardiovascular: Negative for chest pain, palpitations, and edema, Respiratory: Negative for shortness of breath, cough, wheezing, and pleuritic chest pain, Back: Negative for injury and pain, MS/Extremity: Negative for injury and deformity, Skin: Negative for injury, rash, and discoloration, Neuro: Negative for headache, weakness, numbness, tingling, and seizure, Psych: Negative for depression, anxiety, suicide ideation, homicidal ideation, and hallucinations, Allergy/Immunology: Negative for hives, rash, and allergies, Endocrine: Negative for neck swelling, polydipsia, polyuria, polyphagia, and marked weight changes, 10:54 All other systems are negative, Exam: 10:54 Constitutional: This is a well developed, well nourished patient who is awake, alert, sp3 and in no acute distress. Head/Face: Normocephalic, atraumatic. Eyes: Pupils equal round and reactive to light, extra-ocular motions intact. Lids and lashes normal. Conjunctiva and sclera are non-icteric and not injected. Cornea within normal limits. Periorbital areas with no swelling, redness, or edema. ENT: Nares patent. No nasal discharge, no septal abnormalities noted. External auditory canals are clear. Oropharynx with no redness, swelling, or masses, exudates, or evidence of obstruction, uvula midline. Mucous membranes moist. Neck: Trachea midline, no thyromegaly or masses palpated, and no cervical lymphadenopathy. Supple, full range of motion without nuchal rigidity, or vertebral point tenderness. No Meningismus. Cardiovascular: Regular rate and rhythm with a normal S1 and S2. No gallops, murmurs, or rubs. Normal PMI, no JVD. No pulse deficits. Respiratory: Lungs have equal breath sounds bilaterally, clear to auscultation and percussion. No rales, rhonchi or wheezes noted. No increased work of breathing, no retractions or nasal flaring. Back: No spinal tenderness. No costovertebral tenderness. Full range of motion. Skin: Warm, dry with normal turgor. Normal color with no rashes, no lesions, and no evidence of cellulitis. MS/ Extremity: Pulses equal, no cyanosis. Neurovascular intact. Full, normal range of motion. Neuro: Awake and alert, GCS 15, oriented to person, place, time, and situation. Cranial nerves II-XII grossly intact. Motor strength 5/5 in all extremities. Sensory grossly intact. Cerebellar exam normal. Normal gait. Psych: Awake, alert, with orientation to person, place and time. Behavior, mood, and affect are within normal limits. 10:54 Abdomen/GI: Patient tender over bladder. Body habitus obesity limits exam. No flank pain., Vital Signs: 10:29 BP 140 / 100; Pulse 65; Resp 16; Temp 97.9(O); Pulse Ox 100% on R/A; Weight 113.4 kg jb4 (R); Height 5 ft. 5 in. (R); Pain 9/10; 10:29 Body Mass Index 41.60 (113.40 kg, 165.1 cm) jb4 10:29 Pain Scale: Adult jb4 MDM: 10:30 Medical Screening Exam initiated sp3 10:55 Data reviewed: vital signs, nurses notes, lab test result(s). ED course: 40-year-old sp3 male with urinary retention and suprapubic abdominal pain. Differential diagnosis includes UTI, urinary retention, kidney stone, outlet obstruction including prostate, or other process. Also consider GI process. We will obtain routine labs and UA with James catheterization placement. Consider imaging if indicated.. 12:41 ED course: Patient with 5 mm stone at the left UVJ. Patient is now sleeping pain is sp3 resolved with ketorolac. Nausea resolved with ondansetron. We will safely discharge patient home on p.o. ondansetron, diclofenac and Flomax. Patient states he wants no narcotics due to testing that he has to perform.. 06/06 10:43 Order name: CBC with Diff; Complete Time: 12:18 sp3 06/06 10:43 Order name: CMP; Complete Time: 12:35 sp3 06/06 10:43 Order name: Lipase; Complete Time: 12:35 sp3 06/06 10:43 Order name: UA Rfx Skip Cult if indicated; Complete Time: 12:35 sp3 06/06 10:58 Order name: CT Abd/Pelvis - Without Contrast; Complete Time: 12:18 sp3 06/06 10:43 Order name: IV Saline Lock; Complete Time: 11:42 3 06/06 10:43 Order name: Labs collected and sent; Complete Time: 11:42 sp3 06/06 10:43 Order name: James; Complete Time: 10:58 sp3 Administered Medications: 11:58 Drug: Ketorolac IVP 30 mg IVP once Route: IVP; Site: left forearm; bp 11:58 Drug: NS 0.9% IV 1000 ml IV at 1 bolus Per protocol; to be given as a bolus over 60 bp minutes Route: IV; Rate: 1 bolus; Site: left forearm; 11:58 Drug: Ondansetron IVP 4 mg IVP once; over 2 minutes Route: IVP; Site: left forearm; bp Disposition Summary: 06/06/25 12:42 Discharge Ordered Notes: Location: Home sp3 Condition: Stable sp3 Diagnosis - Ureterolithiasis, kidney stone, right flank pain, vomiting sp3 Followup: sp3 - With: Kt Arias MD - When: Upon discharge from the Emergency Department - Reason: Recheck today's complaints Discharge Instructions: - Discharge Summary Sheet sp3 - Kidney Stones sp3 Forms: - Work release form ll1 - Medication Reconciliation Form sp3 - Antibiotic Education sp3 - Prescription Opioid Use sp3 - Patient Portal Instructions sp3 - Leadership Thank You Letter sp3 Prescriptions: - Flomax 0.4 mg Oral capsule - take 1 capsule ORAL route daily; 7 capsule; Refills: 0, Product Selection sp3 Permitted - ondansetron 4 mg Oral Tablet,disintegrating - take 1 tablet ORAL route every 6 hours as needed for nausea and vomiting; 20 sp3 tablet; Refills: 0, Product Selection Permitted - Diclofenac Sodium 75 mg Oral Tablet Sustained Release - take 1 tablet ORAL route 2 times per day; 30 tablet; Refills: 0, Product sp3 Selection Permitted Signatures: Dispatcher [employer] EDDallas Malik RN RN jb4 Segundo Ridley RN RN bp Bud Castro MD MD sp3 Corrections: (The following items were deleted from the chart) 10:44 10:44 CBC+H.LAB.BRZ ordered. EDMS EDMS 10:44 10:44 COMPREHENSIVE METABOLIC PANEL+C.LAB.BRZ ordered. EDMS EDMS 10:44 10:44 LIPASE+C.LAB.BRZ ordered. EDMS EDMS 10:44 10:44 UA Rfx Skip Cult if indicated+U.LAB.BRZ ordered. EDMS EDMS
--- NOTE | 2025-06-06 12:43 | ER ---
Nurse's Notes [facility] Name: Ej Spaulding Age: 40 yrs Sex: Male : 1985 Arrival Date: 06/06/2025 Time: 10:23 Bed 4 Private MD: Diagnosis: Ureterolithiasis, kidney stone, right flank pain, vomiting Presentation: 06/06 10:29 Chief complaint: Patient states: I am having bad lower abdominal pain and I feel like I jb4 have to pee but can't. I last urinated around 3 this morning. Coronavirus screen: At this time, the client does not indicate any symptoms associated with coronavirus-19. Ebola Screen: No symptoms or risks identified at this time. Initial Sepsis Screen: Does the patient meet any 2 criteria? No. Patient's initial sepsis screen is negative. Does the patient have a suspected source of infection? No. Patient's initial sepsis screen is negative. Risk Assessment: Do you want to hurt yourself or someone else? Patient reports no desire to harm self or others. Onset of symptoms was June 06, 2025. Transition of care: patient was not received from another setting of care. 10:29 Method Of Arrival: Ambulatory jb4 10:29 Acuity: MIKE 3 jb4 Historical: - Allergies: 10:31 Cinnamon; jb4 - PMHx: 10:31 None; jb4 - PSHx: 10:31 None; jb4 - Immunization history:: Adult Immunizations up to date. - Infectious Disease History:: Denies. - Social history:: Smoking status: Patient reports the use of cigarette tobacco products, denies chronic smoking, but will smoke occasionally, Patient uses alcohol, occasionally. Screenin:[facility] ED Fall Risk Assessment (Adult) History of falling in the last 3 months, bp including since admission No falls in past 3 months (0 pts) Confusion or Disorientation No (0 pts) Intoxicated or Sedated No (0 pts) Impaired Gait No (0 pts) Mobility Assist Device Used No (0 pt) Altered Elimination No (0 pt) Score/Fall Risk Level 0 - 2 = Low Risk Oriented to surroundings. Abuse screen: Denies threats or abuse. Denies injuries from another. Nutritional screening: No deficits noted. Tuberculosis screening: No symptoms or risk factors identified. Assessment: 10:45 General: SEE TRIAGE. bp Vital Signs: 10:29 BP 140 / 100; Pulse 65; Resp 16; Temp 97.9(O); Pulse Ox 100% on R/A; Weight 113.4 kg jb4 (R); Height 5 ft. 5 in. (R); Pain 9/10; 10:29 Body Mass Index 41.60 (113.40 kg, 165.1 cm) jb4 10:29 Pain Scale: Adult jb4 ED Course: 10:26 Patient arrived in ED. ts1 10:26 Bud Castro MD is Attending Physician. sp3 10:31 Triage completed. jb4 10:31 Arm band placed on right wrist. jb4 10:44 Segundo Ridley, RN is Primary Nurse. bp 10:58 James cath inserted, using sterile technique, 16 Fr., by co, balloon inflated, to pm7 gravity drainage. 11:30 CT Abd/Pelvis - Without Contrast In Process Unspecified. EDMS 11:58 Inserted saline lock: 20 gauge in left forearm, using aseptic technique. Blood bp collected. Flushed with 10 mL NS. 11:59 Patient has correct armband on for positive identification. bp 12:42 Kt Arias MD is Referral Physician. sp3 Administered Medications: 11:58 Drug: Ketorolac IVP 30 mg IVP once Route: IVP; Site: left forearm; bp 11:58 Drug: NS 0.9% IV 1000 ml IV at 1 bolus Per protocol; to be given as a bolus over 60 bp minutes Route: IV; Rate: 1 bolus; Site: left forearm; 11:58 Drug: Ondansetron IVP 4 mg IVP once; over 2 minutes Route: IVP; Site: left forearm; bp Outcome: 12:42 Discharge ordered by . sp3 13:22 Patient left the ED. ll1 Signatures: Dispatcher [employer] EDMS Dallas Campbell RN RN jb4 Segundo Ridley, Morenita Quezada RN, RN RN ll1 Bud Castro MD MD sp3 Patricia Cristobal PAS PAS ts1 Krupa Fuentes pm7
[2025-06-06 13:27] VITALS: BP 140/100; TEMP 97.9; O2SAT 100
== END 2025-06-06 13:22 | disposition home or self-care (01) ==
LOC: ER 10:23
DX: N20.2 Calculus of kidney with calculus of ureter (principal); R11.10 Vomiting, unspecified; F17.210 Nicotine dependence, cigarettes, uncomplicated
CPT/HCPCS: 36415; 51702; 74176; 80053; 81001; 83690; 85025; 96374; 96375; 99284; J2405; J7030